=== PATIENT | male | born 1980 | race Caucasian/White ===

== ENCOUNTER → 2016-07-30 | Outpatient (CLI) | payer OTHER | END | disposition home or self-care (01) | LOC: GOCC 07:55 | PROVIDERS: ATTEND Internal Medicine | DX: T81.4XXA Infection following a procedure, initial encounter (principal) ==

== ENCOUNTER 2017-01-17 08:39 | Emergency (ER) | payer OTHER ==
[2017-01-17] MEDS ORDERED: SODIUM CHLORIDE 0.9% (FLUSH) 10 ML SYG IV PRN (09:04)
--- NOTE | 2017-01-17 09:18 | ED.PDOC ---
History of Present Illness - General Chief Complaint: General Time Seen by Provider: 01/17/17 09:03 Source: patient, alf records Exam Limitations: no limitations - History of Present Illness Initial Comments: [place]IV[place] AT [place] AND IS VENT-DEPENDENT DUE TO ADVANCED MUSCULAR DYSTROPHY. [place] REPORTS HE IS USUALLY 99% ON RA. THIS AM WAS 81%. THEY BAGGED HIM AND BROUGHT UP TO 99% AND SUCTIONED. IN ER, PT CURRENTLY 99% ON RA, BEING MANUALLY BAGGED BY R.T. OTHER VS WNL. PT DENIES PEIN OR OTHER SX , THUS STARTING W/U FOR SOB. Severity: moderate Improving Factors: nothing Worsening Factors: nothing Associated Symptoms: shortness of breath Allergies/Adverse Reactions: Allergies NO KNOWN ALLERGY Allergy (Verified 08/14/15 10:22) Home Medications: Ambulatory Orders Acetaminophen [Acetaminophen ER] 650 mg PO Q6H PRN 08/14/15 Arformoterol Tartrate [Brovana] 15 mcg IN BID 08/14/15 Budesonide (Inhalation) [Budesonide] 0.5 mg IN BID 08/14/15 Chlorhexidine Gluconate (Mouth [Chlorhexidine Gluconate] 0.12 % MT Q4H PRN 08/13 Dextran 70/Dextrose [Hyskon] 1 tata XX TID 08/14/15 Ferrous Sulfate 325 mg PO BID 08/14/15 Furosemide [Lasix] 40 mg PO DAILY 08/14/15 Hydrocortisone 25 mg Supp [Anusol-Hc] 25 mg GA BID PRN 08/14/15 Ipratropium/Albuterol [Duoneb] 3 ml NEB Q4H PRN 08/14/15 Levothyroxine Sodium [Synthroid] 25 mcg PO ACBK 08/14/15 Loperamide HCl 2 mg PO DAILY PRN 08/14/15 Multiple Vitamins W/ Minerals [Multivitamin Adults] 1 tab PO DAILY 08/14/15 Potassium Chloride [K-Tab] 20 meq PO BID 08/14/15 Spironolactone [Aldactone] 25 mg PO DAILY 08/14/15 Artificial Tear Solution [Natural Balance Tears 70.01-0.3 %] 1 tata OP TID Carbamide Peroxide Otic [Debrox Otic] 2 drop BOTH_EYES QID 01/17/17 Cetirizine HCl [Zyrtec Allergy] 10 mg PO DAILY PRN 01/17/17 Clotrimazole/Betamethasone Cre [Lotrisone Cream] 1 unit TOP TID PRN 01/17/17 Ibuprofen [Motrin Ib] 200 mg PO Q6HR PRN 01/17/17 Levothyroxine Sodium [Synthroid] 25 mcg PO DAILY 01/17/17 Polyethylene Glycol 3350 [Miralax] 17 gm PO DAILY PRN 01/17/17 Promethazine HCl 25 mg GA Q6HR PRN 01/17/17 SILVER SULFADIAZINE 1 % 25gm [Silvadene Cream 25gm] 1 applic TOP TID PRN guaiFENesin/DEXTROMETH SYRUP [Robitussin Dm] 5 ml PO Q4HR PRN 01/17/17 Review of Systems - Review of Systems Constitutional: Denies: chills, fever EENTM: Denies: ear pain, nose congestion Respiratory: States: short of breath. Denies: cough, stridor, wheezing Cardiology: States: no symptoms reported Gastrointestinal/Abdominal: States: no symptoms reported Genitourinary: States: no symptoms reported Musculoskeletal: States: no symptoms reported Skin: States: no symptoms reported Neurological: States: no symptoms reported Endocrine: States: no symptoms reported Hematologic/Lymphatic: States: no symptoms reported All other Systems: Reviewed and Negative Past Medical History (General) - Patient Medical History Hx Seizures: No Hx Stroke: No Hx Dementia: No Hx Asthma: No Hx of COPD: Yes - on mech vent Hx Cardiac Disorders: No Hx Congestive Heart Failure: Yes Hx Pacemaker: No Hx Hypertension: Yes Hx Thyroid Disease: Yes - hypo Hx Diabetes: No Hx Gastroesophageal Reflux: Yes - constipation Hx Renal Disease: No Hx of HIV: No Hx MRSA: Yes - 2017 Hip Wound MRSA Source:: Wound - Vaccination History Hx Tetanus, Diphtheria Vaccination: No Hx Influenza Vaccination: No Hx Pneumococcal Vaccination: No - Social History Hx Tobacco Use: No Hx Chewing Tobacco Use: No Hx Alcohol Use: No Hx Substance Use: No Hx Substance Use Treatment: No Hx Depression: No Hx Physical Abuse: No Hx Emotional Abuse: No Hx Suspected Abuse: No - Female History Patient : No Family Medical History - Family History Mother Family History: Unknown Physical Exam - Physical Exam General Appearance: Alert, Well Hydrated Eye Exam: bilateral normal Ears, Nose, Throat: hearing grossly normal, normal ENT inspection, normal pharynx Neck: non-tender, supple Respiratory: chest non-tender, lungs clear, normal breath sounds, other - PT REQUESTING TO BE BAGGED RAPIDLY (APPROX 24 RR), WHICH IMPROVED HIS DYSPNEA. Cardiovascular/Chest: normal peripheral pulses, regular rate, rhythm, no edema, no gallop, no JVD, no murmur Peripheral Pulses: radial,right: 2+, radial,left: 2+ Gastrointestinal/Abdominal: normal bowel sounds, non tender, soft Back Exam: no CVA tenderness, no vertebral tenderness Extremity: non-tender, normal inspection Neurologic: alert, normal mood/affect Skin Exam: normal color, diaphoresis Lymphatic: no adenopathy Progress - Progress Progress: 01/17/17 10:45 PT HAS RLL PNE. TRANSFERRING TO [facility] SINCE HE IS CHRONICALLY VENT- DEPENDENT D/T MUSCULAR DYSTROPHY. I SPOKE WITH DR. MAE, [facility], WHO ACCEPTED CARE. THANK YOU, [facility] AND DR. MAE. CXR - RLL PNE SEPSIS PER SIRS CRITERIA (LEUKOCYTOSIS AND TACHYCARDIA) PLUS INFECTIOUS SOURCE ( PNE). EKG -SINUS TACH CBC - WBC 22. HGB 11.8. ELEV PLATELETS. CMP - HYPONATREMIA AND HYPOKALEMIA D-DIMER APPROPRIATELY MILDLY ELEVATED D/T PNE. TROP ELEV AT 0.[address] CHANGES AND DENIES CHEST PAIN. BNP NEG. UA, ABG, FLU, SPUTUM CX, BLOOD CX - PENDING GIVING 1ST DOSE OF EMPIRIC IV ABX FOR HCAP ([facility] PT): ZOSYN AND VANCOMYCIN. PREPARING FOR TRANSFER VIA EMS. PT HEMODYNAMICALLY STABLE FOR TRFR (O2 98% ON RA VIA VENTILATOR). 01/17/17 10:52 01/17/17 10:55 Departure - Departure Clinical Impression: HCAP (healthcare-associated pneumonia), Leukocytosis, Anemia, Thrombocytosis, Hyponatremia, Hypokalemia, Sinus tachycardia by electrocardiogram, Sepsis due to pneumonia, Incomplete right bundle branch block, Muscular dystrophy, Ventilator dependent Disposition: Transfer to Hospital Condition: Fair Departure Forms: ED Discharge - Pt. Copy, Patient Portal Self Enrollment Referrals: JOSE NOGUEIRA [Primary Care Provider] - 1-2 Weeks Home Medications: Ambulatory Orders Acetaminophen [Acetaminophen ER] 650 mg PO Q6H PRN 08/14/15 Arformoterol Tartrate [Brovana] 15 mcg IN BID 08/14/15 Budesonide (Inhalation) [Budesonide] 0.5 mg IN BID 08/14/15 Chlorhexidine Gluconate (Mouth [Chlorhexidine Gluconate] 0.12 % MT Q4H PRN 08/13 Dextran 70/Dextrose [Hyskon] 1 tata XX TID 08/14/15 Ferrous Sulfate 325 mg PO BID 08/14/15 Furosemide [Lasix] 40 mg PO DAILY 08/14/15 Hydrocortisone 25 mg Supp [Anusol-Hc] 25 mg GA BID PRN 08/14/15 Ipratropium/Albuterol [Duoneb] 3 ml NEB Q4H PRN 08/14/15 Levothyroxine Sodium [Synthroid] 25 mcg PO ACBK 08/14/15 Loperamide HCl 2 mg PO DAILY PRN 08/14/15 Multiple Vitamins W/ Minerals [Multivitamin Adults] 1 tab PO DAILY 08/14/15 Potassium Chloride [K-Tab] 20 meq PO BID 08/14/15 Spironolactone [Aldactone] 25 mg PO DAILY 08/14/15 Artificial Tear Solution [Natural Balance Tears 70.01-0.3 %] 1 tata OP TID Carbamide Peroxide Otic [Debrox Otic] 2 drop BOTH_EYES QID 01/17/17 Cetirizine HCl [Zyrtec Allergy] 10 mg PO DAILY PRN 01/17/17 Clotrimazole/Betamethasone Cre [Lotrisone Cream] 1 unit TOP TID PRN 01/17/17 Ibuprofen [Motrin Ib] 200 mg PO Q6HR PRN 01/17/17 Levothyroxine Sodium [Synthroid] 25 mcg PO DAILY 01/17/17 Polyethylene Glycol 3350 [Miralax] 17 gm PO DAILY PRN 01/17/17 Promethazine HCl 25 mg GA Q6HR PRN 01/17/17 SILVER SULFADIAZINE 1 % 25gm [Silvadene Cream 25gm] 1 applic TOP TID PRN guaiFENesin/DEXTROMETH SYRUP [Robitussin Dm] 5 ml PO Q4HR PRN 01/17/17 Transfer to Outside Facility - Transfer Information [facility] Reason for Transfer: specialized care not available
--- NOTE | 2017-01-17 09:33 | RAD ---
EXAM DESCRIPTION: Chest,1 View CLINICAL HISTORY: 36 years Male, dyspnea COMPARISON: August 14, 2015 and December 22, 2015 TECHNIQUE: AP portable chest. FINDINGS: Dense consolidation right lung base with reticulonodular infiltrates throughout the right lung. This is definitely worse than the comparison. The left lung is clear. Tracheostomy is present. Heart size normal. IMPRESSION: Diffuse right side pneumonia Electronically signed by: Abebe Giles MD 01/17/2017 9:31 AM CDT
[2017-01-17] MEDS ORDERED: PIPERACILLIN/TAZOBACTAM 3.375 GM in SODIUM CHLORIDE 0.9% 100ML 100 ML IVPB ONE (10:29)
[2017-01-17] MEDS ORDERED: VANCOMYCIN HCL INJ 1,000 MG in SODIUM CHLORIDE 0.9% 250ML 250 ML IVPB ONE (10:30)
[2017-01-17] MEDS ORDERED: PIPERACILLIN/TAZOBACTAM 3.375 GM VIAL IVPB ONE (11:05)
[2017-01-17] MEDS ORDERED: SODIUM CHLORIDE 0.9% 100ML 100 ML IVPB ONE (11:05)
[2017-01-17] MEDS ORDERED: VANCOMYCIN HCL INJ 1,000 MG VIAL IVPB ONE (11:06)
[2017-01-17] MEDS ORDERED: SODIUM CHLORIDE 0.9% 250ML 250 ML ONE (11:06)
[2017-01-17 11:44] VITALS: O2SAT 95
[2017-01-17 12:51] VITALS: BP 95/60; TEMP 98
== END 2017-01-17 12:30 | disposition short-term general hospital (02) ==
LOC: ER 08:39
DX: A41.9 Sepsis, unspecified organism (principal); J18.9 Pneumonia, unspecified organism; Y95 Nosocomial condition; D64.9 Anemia, unspecified; D47.3 Essential (hemorrhagic) thrombocythemia; E87.1 Hypo-osmolality and hyponatremia; E87.6 Hypokalemia; R00.0 Tachycardia, unspecified; I45.10 Unspecified right bundle-branch block; Z99.11 Dependence on respirator [ventilator] status; G71.0 Muscular dystrophy; E03.9 Hypothyroidism, unspecified; I11.0 Hypertensive heart disease with heart failure; I50.9 Heart failure, unspecified
CPT/HCPCS: 36415; 71010; 80053; 82550; 82553; 83880; 84484; 85025; 85379; 87070; 87804; 93005; 94640; 94770; J2060; J2543; J3370; J7050

== ENCOUNTER 2017-01-21 12:36 | Emergency (ER) | payer OTHER ==
--- NOTE | 2017-01-21 13:10 | ED.PDOC ---
History of Present Illness - General Chief Complaint: Neuro Symptoms/Deficits Stated Complaint: altered mental status Time Seen by Provider: 01/21/17 12:47 Source: RN notes reviewed, Vital Signs reviewed, family, EMS, jail records Exam Limitations: clinical condition - History of Present Illness Initial Comments: Patient comes into ER via EMS after cardiac arrest [facility]. Patient is a chronic vent patient due to muscular dystrophy. He was just discharged from [facility] due to pneumonia. Today he was c/o not feeling well and asked the nurse for a Tylenol. When she got back to the room with the Tylenol he was in cardiac arrest. CPR was started by nursing staff and continued by EMS on arrival. They got him into the ambulance and hooked him up to the monitor and he was back in sinus rhythm in the 50's that gradually came up to the 110's. He has been unresponsive the whole time. Normally he is awake, alert and talkative. Timing/Duration: 1/2 hour Severity: severe Improving Factors: other - CPR Worsening Factors: nothing Allergies/Adverse Reactions: Allergies NO KNOWN ALLERGY Allergy (Verified 08/14/15 10:22) Home Medications: Ambulatory Orders Acetaminophen [Acetaminophen ER] 650 mg PO Q6H PRN 08/14/15 Arformoterol Tartrate [Brovana] 15 mcg IN BID 08/14/15 Budesonide (Inhalation) [Budesonide] 0.5 mg IN BID 08/14/15 Chlorhexidine Gluconate (Mouth [Chlorhexidine Gluconate] 0.12 % MT Q4H PRN 08/13 Dextran 70/Dextrose [Hyskon] 1 tata XX TID 08/14/15 Ferrous Sulfate 325 mg PO BID 08/14/15 Furosemide [Lasix] 40 mg PO DAILY 08/14/15 Hydrocortisone 25 mg Supp [Anusol-Hc] 25 mg NV BID PRN 08/14/15 Ipratropium/Albuterol [Duoneb] 3 ml NEB Q4H PRN 08/14/15 Levothyroxine Sodium [Synthroid] 25 mcg PO ACBK 08/14/15 Loperamide HCl 2 mg PO DAILY PRN 08/14/15 Multiple Vitamins W/ Minerals [Multivitamin Adults] 1 tab PO DAILY 08/14/15 Potassium Chloride [K-Tab] 20 meq PO BID 08/14/15 Spironolactone [Aldactone] 25 mg PO DAILY 08/14/15 Artificial Tear Solution [Natural Balance Tears 70.01-0.3 %] 1 tata OP TID Carbamide Peroxide Otic [Debrox Otic] 2 drop BOTH_EYES QID 01/17/17 Cetirizine HCl [Zyrtec Allergy] 10 mg PO DAILY PRN 01/17/17 Clotrimazole/Betamethasone Cre [Lotrisone Cream] 1 unit TOP TID PRN 01/17/17 Ibuprofen [Motrin Ib] 200 mg PO Q6HR PRN 01/17/17 Levothyroxine Sodium [Synthroid] 25 mcg PO DAILY 01/17/17 Polyethylene Glycol 3350 [Miralax] 17 gm PO DAILY PRN 01/17/17 Promethazine HCl 25 mg NV Q6HR PRN 01/17/17 SILVER SULFADIAZINE 1 % 25gm [Silvadene Cream 25gm] 1 applic TOP TID PRN guaiFENesin/DEXTROMETH SYRUP [Robitussin Dm] 5 ml PO Q4HR PRN 01/17/17 Review of Systems - Review of Systems Unable to Obtain Due To: clinical condition Past Medical History (General) - Patient Medical History Hx Seizures: No Hx Stroke: No Hx Dementia: No Hx Asthma: No Hx of COPD: Yes - on mech vent Hx Cardiac Disorders: No Hx Congestive Heart Failure: Yes Hx Pacemaker: No Hx Hypertension: Yes Hx Thyroid Disease: Yes - hypo Hx Diabetes: No Hx Gastroesophageal Reflux: Yes - constipation Hx Renal Disease: No Hx of HIV: No Hx MRSA: Yes - 2017 Hip Wound MRSA Source:: Wound - Vaccination History Hx Tetanus, Diphtheria Vaccination: No Hx Influenza Vaccination: No Hx Pneumococcal Vaccination: No - Social History Hx Tobacco Use: No Hx Chewing Tobacco Use: No Hx Alcohol Use: No Hx Substance Use: No Hx Substance Use Treatment: No Hx Depression: No Hx Physical Abuse: No Hx Emotional Abuse: No Hx Suspected Abuse: No - Female History Patient : No Family Medical History - Family History Mother Family History: Unknown Living Status: Still Living Progress - Progress Progress: 01/21/17 13:40 Patient is more responsive. Shaking head yes and no to answer questions. C/O sharp chest pain but no pressure. +SOB, would like an Albuterol treatment. 01/21/17 15:16 He has become more responsive the longer he has been here. Now talking. His nurse from [facility] came by. She reports that he became unresponsive and they laid him back in bed and at that point he lost his pulse. They started CPR and called 911. Thinks CPR was performed for ~8minutes prior to a rhythm being noted on the EMS monitor. - Results/Orders Results/Orders: Laboratory Tests 01/21/17 01/21/17 01/21/17 14:13 14:13 14:13 WBC 32.6 H* RBC 4.44 L Hgb 12.0 L Hct 36.4 L MCV 81.9 MCH 27.0 MCHC 33.0 RDW 15.2 H Plt Count 639 H MPV 7.1 L Absolute Neuts (auto) Not Reportable Absolute Lymphs (auto) Not Reportable Absolute Monos (auto) Not Reportable Absolute Eos (auto) Not Reportable Neutrophils % Not Reportable Neutrophils % (Manual) 80.0 Lymphocytes % Not Reportable Lymphocytes % (Manual) 3.0 Monocytes % Not Reportable Monocytes % (Manual) 4.0 Eosinophils % Not Reportable Basophils % Not Reportable Band Neutrophils 13.0 Platelet Estimate Increased Normal RBC Morphology Normal rbc morph D-Dimer, Quantitative 3853 H* Sodium 143 Potassium 3.9 Chloride 117 H* Carbon Dioxide 18 L Anion Gap 11.9 L BUN 18 Creatinine < 0.40 L BUN/Creatinine Ratio 45.0 H Random Glucose 130 H Serum Osmolality 288.6 Calcium 8.7 Total Bilirubin 0.7 AST 24 ALT 18 Alkaline Phosphatase 87 Creatine Kinase 164 CK-MB (CK-2) 14.9 H* CK-MB (CK-2) % Not Reportable Troponin I 0.26 H* Serum Total Protein 7.9 Albumin 3.0 L Globulin 4.9 H Albumin/Globulin Ratio 0.6 L - EKG/XRAY/CT EKG: Sinus, Tachy, RBBB, no ST T wave changes Departure - Departure Clinical Impression: Pneumonia of right lower lobe due to infectious organism, Cardiac arrest due to respiratory disorder, Myotonic dystrophy Altered mental status Qualifiers: Altered mental status type: transient alteration of awareness Qualified Code(s) : R40.4 - Transient alteration of awareness Time of Disposition: 15:26 Disposition: Transfer to Hospital Condition: Serious Departure Forms: ED Discharge - Pt. Copy, Patient Portal Self Enrollment Referrals: JOSE NOGUEIRA [Primary Care Provider] - 1-2 Weeks Home Medications: Ambulatory Orders Acetaminophen [Acetaminophen ER] 650 mg PO Q6H PRN 08/14/15 Arformoterol Tartrate [Brovana] 15 mcg IN BID 08/14/15 Budesonide (Inhalation) [Budesonide] 0.5 mg IN BID 08/14/15 Chlorhexidine Gluconate (Mouth [Chlorhexidine Gluconate] 0.12 % MT Q4H PRN 08/13 Dextran 70/Dextrose [Hyskon] 1 tata XX TID 08/14/15 Ferrous Sulfate 325 mg PO BID 08/14/15 Furosemide [Lasix] 40 mg PO DAILY 08/14/15 Hydrocortisone 25 mg Supp [Anusol-Hc] 25 mg NV BID PRN 08/14/15 Ipratropium/Albuterol [Duoneb] 3 ml NEB Q4H PRN 08/14/15 Levothyroxine Sodium [Synthroid] 25 mcg PO ACBK 08/14/15 Loperamide HCl 2 mg PO DAILY PRN 08/14/15 Multiple Vitamins W/ Minerals [Multivitamin Adults] 1 tab PO DAILY 08/14/15 Potassium Chloride [K-Tab] 20 meq PO BID 08/14/15 Spironolactone [Aldactone] 25 mg PO DAILY 08/14/15 Artificial Tear Solution [Natural Balance Tears 70.01-0.3 %] 1 tata OP TID Carbamide Peroxide Otic [Debrox Otic] 2 drop BOTH_EYES QID 01/17/17 Cetirizine HCl [Zyrtec Allergy] 10 mg PO DAILY PRN 01/17/17 Clotrimazole/Betamethasone Cre [Lotrisone Cream] 1 unit TOP TID PRN 01/17/17 Ibuprofen [Motrin Ib] 200 mg PO Q6HR PRN 01/17/17 Levothyroxine Sodium [Synthroid] 25 mcg PO DAILY 01/17/17 Polyethylene Glycol 3350 [Miralax] 17 gm PO DAILY PRN 01/17/17 Promethazine HCl 25 mg NV Q6HR PRN 01/17/17 SILVER SULFADIAZINE 1 % 25gm [Silvadene Cream 25gm] 1 applic TOP TID PRN guaiFENesin/DEXTROMETH SYRUP [Robitussin Dm] 5 ml PO Q4HR PRN 01/17/17 Transfer to Outside Facility - Transfer Information Accepting Provider:: Neto Torres Accepting Facility: [facility] Reason for Transfer: required specialist not available - [employer]
[2017-01-21] MEDS ORDERED: ALBUTEROL SULFATE 2.5 MG/3 ML VIAL NEB ONE ×2 (13:37→13:42)
--- NOTE | 2017-01-21 13:55 | CT ---
PROCEDURE: Head HISTORY: Altered mental status Indication: Same as above Comparison: None Technique: CT of the head was done without intravenous contrast was done in the orthogonal planes. This exam was performed according to our departmental dose-optimization program, which includes automated exposure control, adjustment of the mA and/or KV according to the patient's size and/or use of iterative reconstruction technique. FINDINGS: There is no intracranial hemorrhage, midline shift mass effect or acute focal infarct. If clinical concern exists regarding an acute ischemic/vascular pathology being responsible for patient's symptomatology, an MRI of the brain is more sensitive than the current study, in ruling out such a possibility. There is good esparza/white matter differentiation. The ventricular system is normal. The mastoid air cells are unremarkable . The paranasal sinuses are unremarkable . There is no visualization of acute fractures involving the calvarium or the skull base. IMPRESSION: There is no acute intracranial abnormality. Electronically signed by: Dickson Rivera MD 01/21/2017 1:54 PM CDT Workstation: [id number]
[2017-01-21] MEDS ORDERED: SODIUM CHLORIDE 0.9% 1000ML 1,000 ML IVS ONE (16:12)
[2017-01-21 16:18] VITALS: BP 93/62; TEMP 98.4; O2SAT 95
[2017-01-21] MEDS ORDERED: SODIUM CHLORIDE 0.9% 1000ML 1,000 ML ONE (17:36)
== END 2017-01-21 16:15 | disposition short-term general hospital (02) ==
LOC: ER 12:36
DX: J18.9 Pneumonia, unspecified organism (principal); I46.8 Cardiac arrest due to other underlying condition; G71.11 Myotonic muscular dystrophy; R40.4 Transient alteration of awareness; Z99.11 Dependence on respirator [ventilator] status; I11.0 Hypertensive heart disease with heart failure; I10 Essential (primary) hypertension; E03.9 Hypothyroidism, unspecified; Z79.899 Other long term (current) drug therapy
CPT/HCPCS: 36415; 70450; 80053; 82550; 82553; 84484; 85025; 85379; 93005; 94002; 94640; J7030; J7611

== ENCOUNTER 2017-08-05 08:36 | Emergency (ER) | payer OTHER ==
[2017-08-05] MEDS ORDERED: IPRATROPIUM/ALBUTEROL 3 ML VIAL NEB ONE ×4 (08:50→09:19)
--- NOTE | 2017-08-05 08:58 | ED.PDOC ---
History of Present Illness - General Chief Complaint: Respiratory Problem Stated Complaint: labored breathing Time Seen by Provider: 08/05/17 08:51 Source: EMS, group home records Exam Limitations: physical impairment, other - ventilator dependent /on tracheostomy - History of Present Illness Initial Comments: Reuben Garnett 37 y/o male with history of muscular dystrophy with chronic respiratory failure on chronic ventilatory support brought by ems after they were called on this patient with reported difficulty breathing this am at the facility.On his arrival he was whispering about hard to breath with the respiratory therapist Sao2 -100 %,HR-115 with BP-142/76 ,Vent -40% Fio2;pip-52, rr-26 Timing/Duration: 1-3 hours Severity: moderate Activities at Onset: none Possible Cause: occasional episodes Improving Factors: nothing Worsening Factors: nothing Respiratory Risk Factors: other Allergies/Adverse Reactions: Allergies NO KNOWN ALLERGY Allergy (Verified 08/14/15 10:22) Home Medications: Ambulatory Orders Acetaminophen [Acetaminophen ER] 650 mg PEG Q6H PRN 08/14/15 Arformoterol Tartrate [Brovana] 15 mcg IN BID 08/14/15 Budesonide (Inhalation) [Budesonide] 0.5 mg IN BID 08/14/15 Chlorhexidine Gluconate (Mouth [Chlorhexidine Gluconate] 0.12 % MT Q4H PRN 08/13 Ferrous Sulfate 325 mg PO BID 08/14/15 Furosemide [Lasix] 40 mg PEG DAILY 08/14/15 Ipratropium/Albuterol [Duoneb] 3 ml NEB Q6H 08/14/15 Levothyroxine Sodium [Synthroid] 25 mcg PEG ACBK 08/14/15 Potassium Chloride [K-Tab] 20 meq PEG BID 08/14/15 Artificial Tear Solution [Natural Balance Tears 70.01-0.3 %] 1 tata OP TID Clotrimazole/Betamethasone Cre [Lotrisone Cream] 1 unit TOP TID PRN 01/17/17 Ibuprofen [Motrin Ib] 600 mg PO Q12H PRN 01/17/17 Polyethylene Glycol 3350 [Miralax] 17 gm PEG DAILY PRN 01/17/17 Aspirin [Aspirin Regimen Low Dose/] 81 mg PEG GURU-OTH-DAY 08/05/17 B-Complex W/ Folic Acid [B Complex] 1 tab PEG DAILY 08/05/17 Folic Acid 1 mg PEG DAILY 08/05/17 Lactobacillus [Acidophilus] 2 tab PEG BID 08/05/17 Levalbuterol HCl [Xopenex] 1.25 mg IN Q6H 08/05/17 Nystatin Powder [Mycostatin] 15 gm TOP BID 08/05/17 levoFLOXacin [Levaquin] 500 mg PEG DAILY 08/05/17 Review of Systems - Review of Systems Respiratory: States: see HPI Musculoskeletal: States: muscle stiffness Unable to Obtain Due To: condition, other - ventilatory support with tracheostomy hard time verbalizing All other Systems: Reviewed and Negative, No Change from Baseline Past Medical History (General) - Patient Medical History Hx Seizures: No Hx Stroke: No Hx Dementia: No Hx Asthma: No Hx of COPD: Yes - on mech vent Hx Cardiac Disorders: No Hx Congestive Heart Failure: Yes Hx Pacemaker: No Hx Hypertension: Yes Hx Thyroid Disease: Yes - hypo Hx Diabetes: No Hx Gastroesophageal Reflux: Yes - constipation Hx Renal Disease: No Hx of HIV: No Hx MRSA: Yes - 2017 Hip Wound MRSA Source:: Wound Surgical History: other - tracheostomy - Vaccination History Hx Tetanus, Diphtheria Vaccination: No Hx Influenza Vaccination: No Hx Pneumococcal Vaccination: No - Social History Hx Tobacco Use: No Hx Chewing Tobacco Use: No Hx Alcohol Use: No Hx Substance Use: No Hx Substance Use Treatment: No Hx Depression: No Hx Physical Abuse: No Hx Emotional Abuse: No Hx Suspected Abuse: No - Activities of Daily Living Correction/Assisted Living (if applicable):: Daron Amin Grooming Ability: Total Assistance Eating (Feeding) Ability: Total Assistance Toileting Ability: Total Assistance - Female History Patient : No Family Medical History - Family History Mother Family History: Unknown Living Status: Still Living Physical Exam - Physical Exam General Appearance: Alert, Comfortable, No apparent distress Eyes, Ears, Nose, Throat Exam: normal ENT inspection Neck: supple, other - patent tracheostomy Respiratory: chest non-tender, no accessory muscle use, decreased breath sounds , rales - bilaterally Cardiovascular/Chest: normal peripheral pulses, regular rate, rhythm, no murmur Peripheral Pulses: radial,right: 2+, radial,left: 2+ Gastrointestinal/Abdominal: soft, no organomegaly, other - g tube patent Extremity: non-tender, no pedal edema, no calf tenderness, other - contracture deformity both lower extremity with muscle atrophy Skin Exam: normal color, warm/dry Lymphatic: no adenopathy Progress - Progress Progress: 08/05/17 09:03 Vital Signs - 8 hr 08/05/17 08:46 Temperature 98.8 F Pulse Rate [ 116 H Right Brachial] Respiratory 16 Rate Blood Pressure 147/98 [Right Arm] O2 Sat by Pulse 100 Oximetry - Results/Orders Results/Orders: ABG ph-7.49/pco2-28.7/po2-103mm Hg 40% Fi02 08/05/17 09:04 URINALYSIS Stat 08/05/17 09:05 SVN/Updraft Therapy .ONCE 08/05/17 09:06 SVN/Updraft Therapy .PRN 08/05/17 09:33 BLOOD CULTURE Stat 08/05/17 09:54 Capnography .ONCE 08/06/17 09:00 [facility] Daily Ventilator Monitor Daily Laboratory Results - last 24 hr 08/05/17 08/05/17 08/05/17 09:07 09:38 09:38 WBC 15.1 H RBC 3.00 L Hgb 8.1 L Hct 24.4 L MCV 81.5 MCH 27.0 MCHC 33.3 RDW 16.1 H Plt Count 614 H MPV 7.6 Absolute Neuts (auto) 12.60 H Absolute Lymphs (auto) 0.90 L Absolute Monos (auto) 1.40 H Absolute Eos (auto) 0.20 Absolute Basos (auto) 0.10 Neutrophils % 83.1 H Lymphocytes % 5.8 L Monocytes % 9.2 H Eosinophils % 1.2 Basophils % 0.7 PT 17.1 H INR 1.480 PTT (SP) 32.4 pCO2 29 L pO2 103 HCO3 21.6 ABG pH 7.490 H ABG O2 Saturation 100.5 H ABG Base Excess -1.0 ABG Deoxyhemoglobin -0.4 L Oxyhemoglobin % 98.5 H Carboxyhemoglobin % 0.2 L Methemoglobin % Sat 1.8 H Calc Total Hemoglobin 7.8 L Sodium 136 Potassium 3.8 Chloride 102 Carbon Dioxide 23 Anion Gap 14.8 BUN 25 H Creatinine < 0.40 L BUN/Creatinine Ratio 62.0 H Random Glucose 136 H Serum Osmolality 278.4 Lactic Acid 1.0 Calcium 8.8 Magnesium 2.2 Total Bilirubin 0.4 Direct Bilirubin 0.1 Indirect Bilirubin 0.3 AST 25 ALT 31 Alkaline Phosphatase 120 Creatine Kinase 69 CK-MB (CK-2) 1.8 CK-MB (CK-2) % Not Reportable Troponin I < 0.02 B-Natriuretic Peptide Serum Total Protein 9.4 H Albumin 3.2 08/05/17 10:03 WBC RBC Hgb Hct MCV MCH MCHC RDW Plt Count MPV Absolute Neuts (auto) Absolute Lymphs (auto) Absolute Monos (auto) Absolute Eos (auto) Absolute Basos (auto) Neutrophils % Lymphocytes % Monocytes % Eosinophils % Basophils % PT INR PTT (SP) pCO2 pO2 HCO3 ABG pH ABG O2 Saturation ABG Base Excess ABG Deoxyhemoglobin Oxyhemoglobin % Carboxyhemoglobin % Methemoglobin % Sat Calc Total Hemoglobin Sodium Potassium Chloride Carbon Dioxide Anion Gap BUN Creatinine BUN/Creatinine Ratio Random Glucose Serum Osmolality Lactic Acid Calcium Magnesium Total Bilirubin Direct Bilirubin Indirect Bilirubin AST ALT Alkaline Phosphatase Creatine Kinase CK-MB (CK-2) CK-MB (CK-2) % Troponin I B-Natriuretic Peptide 135.0 H Serum Total Protein Albumin - EKG/XRAY/CT XRAY: chest - worsening right sided pleural effusion and diffuse interstitial infiltrate;volume loss right hemithorax Departure - Departure Clinical Impression: Dyspnea and respiratory abnormalities, Ventilator dependent, History of muscular dystrophy Pneumonia Qualifiers: Pneumonia type: due to unspecified organism Laterality: right Lung location: lower lobe of lung Qualified Code(s): J18.1 - Lobar pneumonia, unspecified organism Respiratory failure Qualifiers: Chronicity: unspecified Respiratory failure complication: unspecified whether with hypoxia or hypercapnia Qualified Code(s): J96.90 - Respiratory failure, unspecified, unspecified whether with hypoxia or hypercapnia Time of Disposition: 11:28 Disposition: Transfer to Hospital Condition: Fair Departure Forms: Patient Portal Self Enrollment Referrals: JOSE NOGUEIRA [Primary Care Provider] - 1-2 Weeks Home Medications: Ambulatory Orders Acetaminophen [Acetaminophen ER] 650 mg PEG Q6H PRN 08/14/15 Arformoterol Tartrate [Brovana] 15 mcg IN BID 08/14/15 Budesonide (Inhalation) [Budesonide] 0.5 mg IN BID 08/14/15 Chlorhexidine Gluconate (Mouth [Chlorhexidine Gluconate] 0.12 % MT Q4H PRN 08/13 Ferrous Sulfate 325 mg PO BID 08/14/15 Furosemide [Lasix] 40 mg PEG DAILY 08/14/15 Ipratropium/Albuterol [Duoneb] 3 ml NEB Q6H 08/14/15 Levothyroxine Sodium [Synthroid] 25 mcg PEG ACBK 08/14/15 Potassium Chloride [K-Tab] 20 meq PEG BID 08/14/15 Artificial Tear Solution [Natural Balance Tears 70.01-0.3 %] 1 tata OP TID Clotrimazole/Betamethasone Cre [Lotrisone Cream] 1 unit TOP TID PRN 01/17/17 Ibuprofen [Motrin Ib] 600 mg PO Q12H PRN 01/17/17 Polyethylene Glycol 3350 [Miralax] 17 gm PEG DAILY PRN 01/17/17 Aspirin [Aspirin Regimen Low Dose/] 81 mg PEG GURU-OTH-DAY 08/05/17 B-Complex W/ Folic Acid [B Complex] 1 tab PEG DAILY 08/05/17 Folic Acid 1 mg PEG DAILY 08/05/17 Lactobacillus [Acidophilus] 2 tab PEG BID 08/05/17 Levalbuterol HCl [Xopenex] 1.25 mg IN Q6H 08/05/17 Nystatin Powder [Mycostatin] 15 gm TOP BID 08/05/17 levoFLOXacin [Levaquin] 500 mg PEG DAILY 08/05/17 Transfer to Outside Facility - Transfer Information Accepting Provider:: Dr.J. Rodriguez-DANIEL Morillo Accepting Facility: [facility] Reason for Transfer: required specialist not available - Base Remover
[2017-08-05] MEDS ORDERED: SODIUM CHLORIDE 0.9% 500ML 500 ML IVS ONE (09:06)
--- NOTE | 2017-08-05 09:49 | RAD ---
PROCEDURE: XR CHEST 1 VIEW HISTORY: sob COMPARISON: 01/17/2017 TECHNIQUE: Single projection of the chest was done. FINDINGS: Note is again made of a tracheostomy. There is worsening right-sided pleural effusion and worsening diffuse interstitial infiltrates in the right hemithorax. Persistent volume loss in the right hemithorax is again noted. The left lung is free of infiltrates or pleural effusions. There is no pneumothorax . The cardiomediastinal silhouette is stable. IMPRESSION: There is worsening right-sided pleural effusion and worsening diffuse interstitial infiltrates in the right hemithorax. Persistent volume loss in the right hemithorax is again noted. Electronically signed by: Dickson Rivera MD 08/05/2017 9:48 AM CDT Workstation: [id number]
[2017-08-05] MEDS ORDERED: MEROPENEM 1 GM in SODIUM CHL 0.9% 50ML MIN-BAG+ 50 ML IVPB ONE (10:46)
[2017-08-05] MEDS ORDERED: SODIUM CHL 0.9% 50ML MIN-BAG+ 50 ML IVPB ONE (10:50)
[2017-08-05] MEDS ORDERED: MEROPENEM 1 GM VIAL IVPB ONE (10:50)
[2017-08-05 11:38] VITALS: O2SAT 99
[2017-08-05 12:28] VITALS: BP 100/66; TEMP 97.6
== END 2017-08-05 12:28 | disposition short-term general hospital (02) ==
LOC: ER 08:36
DX: J18.1 Lobar pneumonia, unspecified organism (principal); J96.10 Chronic respiratory failure, unspecified whether with hypoxia or hypercapnia; G71.0 Muscular dystrophy; E03.9 Hypothyroidism, unspecified; I11.0 Hypertensive heart disease with heart failure; I50.9 Heart failure, unspecified; J44.9 Chronic obstructive pulmonary disease, unspecified; Z99.11 Dependence on respirator [ventilator] status; Z79.899 Other long term (current) drug therapy
CPT/HCPCS: 36415; 36600; 71045; 80048; 80076; 82550; 82553; 82803; 82805; 83605; 83880; 84484; 85025; 85610; 85730; 87040; 94002; 94640; 94770; J2185; J7040; J7050; J7620

== ENCOUNTER 2017-08-25 14:51 | Emergency (ER) | payer OTHER ==
--- NOTE | 2017-08-25 16:29 | ED.PDOC ---
History of Present Illness - General Chief Complaint: Skin/Abrasion/Tear Stated Complaint: edema Time Seen by Provider: 08/25/17 15:15 Source: patient Exam Limitations: other - PT VENT DEPENDENT WITH LIMITED ABILITY TO COMMUNICATE. Additional Information: PT VENT DEPENDENT FROM [facility]. C/O ABDOMINAL PAIN. DIARRHEA X 2. NO OTHER SX'S. - History of Present Illness Timing/Duration: other - TODAY Severity: moderate Improving Factors: nothing Worsening Factors: nothing Associated Symptoms: denies symptoms Allergies/Adverse Reactions: Allergies NO KNOWN ALLERGY Allergy (Verified 08/14/15 10:22) Home Medications: Ambulatory Orders Acetaminophen [Acetaminophen ER] 650 mg PEG Q6H PRN 08/14/15 Arformoterol Tartrate [Brovana] 15 mcg IN BID 08/14/15 Budesonide (Inhalation) [Budesonide] 0.5 mg IN BID 08/14/15 Chlorhexidine Gluconate (Mouth [Chlorhexidine Gluconate] 0.12 % MT Q4H PRN 08/13 Ferrous Sulfate 325 mg PO BID 08/14/15 Furosemide [Lasix] 40 mg PEG DAILY 08/14/15 Ipratropium/Albuterol [Duoneb] 3 ml NEB Q6H 08/14/15 Levothyroxine Sodium [Synthroid] 25 mcg PEG ACBK 08/14/15 Potassium Chloride [K-Tab] 20 meq PEG BID 08/14/15 Clotrimazole/Betamethasone Cre [Lotrisone Cream] 1 unit TOP TID PRN 01/17/17 Dextran 70-Hypromellose [Natural Balance Tears 70.01-0.3 %] 1 tata OP TID Ibuprofen [Motrin Ib] 600 mg PO Q12H PRN 01/17/17 Polyethylene Glycol 3350 [Miralax] 17 gm PEG DAILY PRN 01/17/17 Aspirin [Aspirin Regimen Low Dose/] 81 mg PEG GURU-OTH-DAY 08/05/17 B-Complex W/ Folic Acid [B Complex] 1 tab PEG DAILY 08/05/17 Folic Acid 1 mg PEG DAILY 08/05/17 Lactobacillus [Acidophilus] 2 tab PEG BID 08/05/17 Levalbuterol HCl [Xopenex] 1.25 mg IN Q6H 08/05/17 Nystatin Powder [Mycostatin] 15 gm TOP BID 08/05/17 levoFLOXacin [Levaquin] 500 mg PEG DAILY 08/05/17 Review of Systems - Review of Systems Constitutional: Denies: chills, fever EENTM: States: no symptoms reported Respiratory: Denies: cough Cardiology: Denies: chest pain, palpitations Gastrointestinal/Abdominal: States: abdominal pain, diarrhea. Denies: nausea, vomiting Genitourinary: States: no symptoms reported Musculoskeletal: States: no symptoms reported Skin: States: no symptoms reported Neurological: States: other - CHRONIC QUADRAPLEGIA SECONDARY TO MS Endocrine: States: no symptoms reported Hematologic/Lymphatic: States: no symptoms reported Past Medical History (General) - Patient Medical History Hx Seizures: No Hx Stroke: No Hx Dementia: No Hx Asthma: No Hx of COPD: Yes - on mech vent Hx Cardiac Disorders: No Hx Congestive Heart Failure: Yes Hx Pacemaker: No Hx Hypertension: Yes Hx Thyroid Disease: Yes - hypo Hx Diabetes: No Hx Gastroesophageal Reflux: Yes - constipation Hx Renal Disease: No Hx of HIV: No Hx MRSA: Yes - 2017 Hip Wound MRSA Source:: Wound - Vaccination History Hx Tetanus, Diphtheria Vaccination: No Hx Influenza Vaccination: No Hx Pneumococcal Vaccination: No - Social History Hx Tobacco Use: No Hx Chewing Tobacco Use: No Hx Alcohol Use: No Hx Substance Use: No Hx Substance Use Treatment: No Hx Depression: No Hx Physical Abuse: No Hx Emotional Abuse: No Hx Suspected Abuse: No - Female History Patient : No Family Medical History - Family History Mother Family History: Unknown Living Status: Still Living Physical Exam - Physical Exam General Appearance: Other - CONTRACTED, Eye Exam: bilateral normal Ears, Nose, Throat: hearing grossly normal, normal ENT inspection Neck: supple, other - PERMENANT TRACH PRESENT Respiratory: other - COARSE BS LUANA. RESP WITH VENT Cardiovascular/Chest: normal peripheral pulses, regular rate, rhythm Gastrointestinal/Abdominal: non tender, soft, no organomegaly, other - MILDLY TYMPANIC, FEEDING TUBE LUQ Back Exam: other - NO OBVIOUS BREAKDOWN Extremity: other - CONTRACTURES AND WASTING OF BOTH UPPER AND LOWER EXT. Neurologic: alert, other - CHRONIC QUADRAPLEGIA Progress - Progress Progress: 08/25/17 18:09 VSS. HGB HAS DROPPED SOME FROM PREVIOUS. ABD CURRENTLY NON SURGICAL WITH SOME MILD TTP. WILL GIVE PPI WHICH PT IS NOT CURRENTLY ON AND GET XRAYS. 08/25/17 19:29 PT FEELS ABOUT THE SAME, DISCUSSED PLAN WITH HIM AND HE AGREES. - EKG/XRAY/CT XRAY: chest - NON SPECIFIC BOWEL GAS, NO OBSTRUCTION, RLL INFILTRATE. CXR, RLL INFILTRATE, IMPROVED OVER PREVIOUS BUT MAY BE NEW. INFILTRATE. Departure - Departure Clinical Impression: Aspiration pneumonia Qualifiers: Aspiration pneumonia type: due to gastric secretions Laterality: right Lung location: lower lobe of lung Qualified Code(s): J69.0 - Pneumonitis due to inhalation of food and vomit Gastritis Qualifiers: Gastritis type: unspecified gastritis Chronicity: acute Gastritis bleeding: presence of bleeding unspecified Qualified Code(s): K29.00 - Acute gastritis without bleeding ICD-10 Supporting Text: DDX, GERD, PUD, Time of Disposition: 19:35 Disposition: Discharge to SNF Condition: Fair Departure Forms: ED Discharge - Pt. Copy, Patient Portal Self Enrollment Instructions: DI for Abrasion, Aspiration Pneumonia Referrals: JOSE NOGUEIRA [Primary Care Provider] - 1-2 Weeks Home Medications: Ambulatory Orders Acetaminophen [Acetaminophen ER] 650 mg PEG Q6H PRN 08/14/15 Arformoterol Tartrate [Brovana] 15 mcg IN BID 08/14/15 Budesonide (Inhalation) [Budesonide] 0.5 mg IN BID 08/14/15 Chlorhexidine Gluconate (Mouth [Chlorhexidine Gluconate] 0.12 % MT Q4H PRN 08/13 Ferrous Sulfate 325 mg PO BID 08/14/15 Furosemide [Lasix] 40 mg PEG DAILY 08/14/15 Ipratropium/Albuterol [Duoneb] 3 ml NEB Q6H 08/14/15 Levothyroxine Sodium [Synthroid] 25 mcg PEG ACBK 08/14/15 Potassium Chloride [K-Tab] 20 meq PEG BID 08/14/15 Clotrimazole/Betamethasone Cre [Lotrisone Cream] 1 unit TOP TID PRN 01/17/17 Dextran 70-Hypromellose [Natural Balance Tears 70.01-0.3 %] 1 tata OP TID Ibuprofen [Motrin Ib] 600 mg PO Q12H PRN 01/17/17 Polyethylene Glycol 3350 [Miralax] 17 gm PEG DAILY PRN 01/17/17 Aspirin [Aspirin Regimen Low Dose/] 81 mg PEG GURU-OTH-DAY 08/05/17 B-Complex W/ Folic Acid [B Complex] 1 tab PEG DAILY 08/05/17 Folic Acid 1 mg PEG DAILY 08/05/17 Lactobacillus [Acidophilus] 2 tab PEG BID 08/05/17 Levalbuterol HCl [Xopenex] 1.25 mg IN Q6H 08/05/17 Nystatin Powder [Mycostatin] 15 gm TOP BID 08/05/17 levoFLOXacin [Levaquin] 500 mg PEG DAILY 08/05/17 Additional Instructions: CONTINUE ROCEPHIN AND CLINDAMYCIN. CALL DR NOGUEIRA FOR ORDERS AND REPEAT HGB IN AM.
[2017-08-25] MEDS ORDERED: PANTOPRAZOLE SODIUM IV 40 MG VIAL IV ONE (18:10)
--- NOTE | 2017-08-25 19:14 | RAD ---
EXAM DESCRIPTION: Abdomen 1 View CLINICAL HISTORY: 37 years, Male, ABDOMINAL PAIN, ANEMIA COMPARISON: October 10, 2014 FINDINGS: Scattered gas-distended loops of bowel in nonspecific but nonobstructive pattern. Calcifications project over the pelvis, previous noted to be within the bladder. No acute osseous abnormality. Severe spinal scoliosis. Right basilar consolidation suspicious for pneumonia. IMPRESSION: Scattered gas-distended loops of bowel in nonspecific but nonobstructive pattern. Bladder calcifications. Right basilar consolidation suspicious for pneumonia. Electronically signed by: Home Núñez MD 08/25/2017 7:13 PM CDT
--- NOTE | 2017-08-25 19:15 | RAD ---
EXAM DESCRIPTION: Chest,1 View CLINICAL HISTORY:37 years Male, ABDOMINAL PAIN, ANEMIA Comparison: August 05, 2017 FINDINGS/impression: Tracheostomy tube seen with tip terminating territorial colon. Patient rotated limiting evaluation. Probable right pleural effusion with right greater than left interstitial and airspace opacities concerning for pulmonary edema and/or pneumonia, worsened from prior. Cardiac silhouette is unchanged Electronically signed by: Home Núñez MD 08/25/2017 7:14 PM CDT
[2017-08-25] MEDS ORDERED: CLINDAMYCIN IV 900MG 900 MG in PREMIX BAG 1 BAG IVPB ONE (19:41)
[2017-08-25] MEDS ORDERED: cefTRIAXone SODIUM 1 GM in SODIUM CHL 0.9% 50ML MIN-BAG+ 50 ML IVPB ONE (19:41)
[2017-08-25] MEDS ORDERED: SODIUM CHL 0.9% 50ML MIN-BAG+ 50 ML IVPB ONE (19:43)
[2017-08-25] MEDS ORDERED: cefTRIAXone SODIUM 1 GM VIAL ONE (19:43)
[2017-08-25] MEDS ORDERED: CLINDAMYCIN IV 900MG 50 ML IVPB ONE (19:49)
[2017-08-25] MEDS ORDERED: WATER FOR INJ 10 ML VIAL INJ ONE (20:38)
[2017-08-25 21:26] VITALS: BP 93/59; TEMP 98.8; O2SAT 98
== END 2017-08-25 21:26 ==
LOC: ER 14:51
DX: J69.0 Pneumonitis due to inhalation of food and vomit (principal); K29.00 Acute gastritis without bleeding; J44.9 Chronic obstructive pulmonary disease, unspecified; I11.0 Hypertensive heart disease with heart failure; I50.9 Heart failure, unspecified; E03.9 Hypothyroidism, unspecified; K21.9 Gastro-esophageal reflux disease without esophagitis; Z79.82 Long term (current) use of aspirin; Z99.11 Dependence on respirator [ventilator] status
CPT/HCPCS: 71045; 74018; 80053; 81001; 82150; 83690; 85025; 94002; A4216; J0696; J3490; J7050

== ENCOUNTER 2017-09-01 10:47 | Emergency (ER) | payer OTHER ==
--- NOTE | 2017-09-01 11:56 | RAD ---
EXAM DESCRIPTION: Chest,1 View CLINICAL HISTORY: Shortness of breath COMPARISON: Chest radiograph dated August 2017 IMPRESSION: Single upright portable frontal view of the chest. Patient is rotated to the right. Tracheostomy tube with distal tip projecting between the clavicles at midline. Cardiac silhouette shows cardiomegaly with prominent interstitial markings bilaterally, compatible with interstitial edema from congestive heart failure. Interval increased opacities in the right lower lung zones. This may represent pulmonary edema. Underlying infiltrate cannot be excluded. Layering small right-sided pleural effusion. No pneumothorax. Electronically signed by: Giovanny Hall MD 09/01/2017 11:54 AM CDT
--- NOTE | 2017-09-01 12:40 | US ---
EXAM DESCRIPTION: Venous,Lower Extremity LT CLINICAL HISTORY: 37 years Male, SWELLING COMPARISON: None. FINDINGS: The left common femoral, femoral, popliteal, peroneal and posterior tibial veins demonstrate normal compressibility and augmentation. No evidence of intraluminal echogenicity to suggest thrombus. IMPRESSION: No evidence of deep vein thrombosis within the left lower extremity. Electronically signed by: Allison Montoya MD 09/01/2017 12:39 PM CDT
--- NOTE | 2017-09-01 12:41 | US ---
EXAM DESCRIPTION: Venous,Upper Extremity LT CLINICAL HISTORY: 37 years Male, SWELLING COMPARISON: None. FINDINGS: The left internal jugular, subclavian, axillary, basilic, radial and ulnar veins demonstrate normal compressibility and augmentation with no evidence of thrombus. Internal echogenicity is identified within the brachial vein with no color flow or augmentation, consistent with thrombus. IMPRESSION: Left brachial vein thrombosis. Electronically signed by: Allison Montoya MD 09/01/2017 12:40 PM CDT
[2017-09-01] MEDS ORDERED: ENOXAPARIN SODIUM 40 MG/0.4 ML SYG SUBCU ONE (12:57)
[2017-09-01] MEDS ORDERED: SODIUM CHLORIDE 0.9% 250ML 250 ML ONE (14:10)
--- NOTE | 2017-09-01 14:52 | CT ---
EXAM DESCRIPTION: CT ABDOMEN AND PELVIS WITH CONTRAST CLINICAL HISTORY: ABDOMINAL PAIN COMPARISON: None Available. TECHNIQUE: CT of the abdomen and pelvis are performed during IV bolus administration of 100 mL of Isovue 300. Oral contrast media is administered as well. This exam was performed according to our departmental dose-optimization program, which includes automated exposure control, adjustment of the mA and/or kV according to patient size and/or use of iterative reconstruction technique. FINDINGS: The lung bases are abnormal with a small layering pleural effusion on the left and mild stranding at the posterior lung base with significant right hemithorax volume loss and extensive inflammatory change at the right lung base suggesting a pneumonitis or chronic infiltrative or consolidating process. Acute pneumonia cannot be excluded. A small pericardial effusion and tiny amount of basilar pleural fluid on the right is also noted. The liver is markedly abnormal with an almost reticulated incompletely enhancing infiltrative appearance to the right lobe diffusely and to a lesser extent the left lobe. The portal vein is opacified and patent but the hepatic veins demonstrate no significant contrast enhancement and suggests the possibility of hepatic venous thrombosis. This could represent a timing issue related to the timing of the contrast but correlation with hepatic sonography with attention to the hepatic veins recommended. A neoplastic or inflammatory infiltrative process within the liver with be a consideration as well but I suspect this is related to either a circulatory disorder order or timing of the contrast enhancement. A small normal spleen is present. The pancreas is normal in appearance and no adrenal masses are seen. A tiny amount of ascites surrounds the spleen in the left upper quadrant without significant ascites noted otherwise. The kidneys normally enhance without obstruction or mass or cyst and the aorta and retroperitoneum are unremarkable. Gastrostomy tube is in place with a decompressed stomach. Small normal caliber bowel loops in the left midabdomen are present with air and fluid-filled colonic bowel loops as well as distal small bowel suggesting an ileus. Bowel wall thickening or acute inflammatory changes to strongly suggest a colitis or enteritis is not apparent. No free abdominal air is noted. Within the pelvis a large distended bladder with layering small stones in the dependent bladder is present with a fluid distended distal sigmoid and rectum suggesting possibly an element of diarrhea. Severe levoscoliosis of the spine and distortion of the abdominal and pelvic cavity is noted. IMPRESSION: 1. Extremely heterogeneous almost reticular enhancement pattern and lack of enhancement within the liver particularly the right lobe. Hepatic venous system is not opacified and the possibility of hepatic venous thrombosis should be considered. This could also simply represent a timing issue with the bolus contrast enhancement. 2. Marked inflammatory changes right lung base with tiny pleural effusion and small layering pleural effusion left lung base. 3. Normal-appearing spleen with minimal is left upper quadrant ascites. 4. Gastrostomy tube in place with small caliber normal proximal small bowel and fluid distended mid and distal small bowel and colon most consistent with an ileus or less likely an enteritis or colitis. Bowel wall thickening is not apparent 5. Distended bladder with layering small stones is noted in the posterior bladder without evidence of renal obstruction. 6. Severe levoscoliosis of the lumbar spine. Electronically signed by: Brain Whittington MD 09/01/2017 2:51 PM CDT
--- NOTE | 2017-09-01 16:57 | ED.PDOC ---
History of Present Illness - General Chief Complaint: Abdominal Pain Stated Complaint: abdominal pain,weight gain Time Seen by Provider: 09/01/17 11:25 Information Source: patient, RN notes reviewed - History of Present Illness Initial Comments: THIS PATIENT COMES FROM [facility]. HE HAS MUSCULAR DYSTROPHY AND IS ON A VENTILATOR. THE PRIMARY COMPLAINT IS THAT THE PATIENT HAS SWELLING OF THE LEFT UPPER ARM AND LEFT LOWER LEG. HE ALSO C/O ABDOMINAL DISTENTION. HE WAS SEEN HERE SEVERAL DAYS AGO FOR ABDOMINAL PAIN. NO HISTORY OF INJURY REPORTED BY THE [facility], AT THE BEDSIDE. Abdominal Pain Onset Location: epigastric, periumbilical Pain Radiation: no radiation Quality: mild Timing/Duration: days - 2-3 Improving Factors: nothing Worsening Factors: nothing - SWELLING OF THE LEFT ARM AND LEFT LEG. Review of Systems - Review of Systems Constitutional: States: malaise, weakness EENTM: States: no symptoms reported Respiratory: States: other - THE PATIENT IS ON A VENTILATOR. RESENTLY TREATED FOR A PNEUMONIA Cardiology: States: no symptoms reported Gastrointestinal/Abdominal: States: abdominal pain Musculoskeletal: States: joint pain, joint swelling, muscle pain Skin: States: no symptoms reported Neurological: States: no symptoms reported Endocrine: States: no symptoms reported Hematologic/Lymphatic: States: no symptoms reported Past Medical History (General) - Patient Medical History Hx Seizures: No Hx Stroke: No Hx Dementia: No Hx Asthma: No Hx of COPD: Yes - on mech vent Hx Cardiac Disorders: No Hx Congestive Heart Failure: Yes Hx Pacemaker: No Hx Hypertension: Yes Hx Thyroid Disease: Yes - hypo Hx Diabetes: No Hx Gastroesophageal Reflux: Yes - constipation Hx Renal Disease: No Hx of HIV: No Hx MRSA: Yes - 2017 Hip Wound MRSA Source:: Wound - Vaccination History Hx Tetanus, Diphtheria Vaccination: No Hx Influenza Vaccination: No Hx Pneumococcal Vaccination: No - Social History Hx Tobacco Use: No Hx Chewing Tobacco Use: No Hx Alcohol Use: No Hx Substance Use: No Hx Substance Use Treatment: No Hx Depression: No Hx Physical Abuse: No Hx Emotional Abuse: No Hx Suspected Abuse: No - Activities of Daily Living Retirement/Assisted Living (if applicable):: [facility] - Female History Patient : No Family Medical History - Family History Mother Family History: Unknown Living Status: Still Living Physical Exam - Physical Exam General Appearance: Alert, Other - NTUBATED, POSITION Eyes, Ears, Nose, Throat Exam: PERRL/EOMI, normal ENT inspection, TMs normal Neck: non-tender, full range of motion, supple, normal inspection Respiratory: chest non-tender, lungs clear, normal breath sounds, no respiratory distress, no accessory muscle use Cardiovascular/Chest: normal peripheral pulses, regular rate, rhythm, other - EDEMA OF THE LEFT UPPER EXTREMITY AND LEFT LOWER LEG Peripheral Pulses: 2+ Gastrointestinal/Abdominal: normal bowel sounds, soft, no organomegaly, no pulsatile mass, distended, other - NO REBAOUND AND NO GUARDING NOTED. Rectal Exam: deferred Back Exam: normal inspection Extremity: normal range of motion, pedal edema, swelling Neurologic: hand folder II-XII nml as tested, alert, normal mood/affect Skin Exam: normal color Progress - Progress Progress: 09/01/17 17:01 HIS WBC'S ARE 8.4 WITH NORMAL DIFF. THE HB IS 7.9, THREE DAYS AGO IT WAS 8.1; BUT TWO YEARS AGO IT WAS 15.6 VENOUS DOPPLER STUDIES: LEFT UPPER EXTREMITY WITH A BRACHIAL THROMBOSIS. LEFT LOWER LEG, NEGATIVE FOR DVT. CT ABDOMEN: DISTENDED COLON, QUESTIONABLE COLITIS AND ILEUS. STONES IN THE BLADDER. THE LIVER IMAGE SEEMS ABDNORMAL-DECREASE UPTAKE OF CONTRAST. PLAN: GIVEN THAT THE HB WAS 7.9 AND THE PATIENT IS GOING TO BE ON LEVONOX AN COUMADIN FOR DVT OF THE LEFT ARM I ELECTED TO TRANSFUSE THE PATIENT. 09/01/17 19:02 THE PATIENT HAS RECIEVED THE TWO UNITS OF PRBC. PLAN TO DC WITH LOVENOX AND COUMADIN Departure - Departure Clinical Impression: Deep vein thrombosis (DVT) of brachial vein of left upper extremity Qualifiers: Chronicity: unspecified Qualified Code(s): I82.622 - Acute embolism and thrombosis of deep veins of left upper extremity Abdominal pain Qualifiers: Abdominal location: generalized Qualified Code(s): R10.84 - Generalized abdominal pain Anemia Qualifiers: Anemia type: iron deficiency Iron deficiency anemia type: unspecified iron deficiency Qualified Code(s): D50.9 - Iron deficiency anemia, unspecified Time of Disposition: 19:03 Disposition: Discharge to Home or Self Care Departure Forms: ED Discharge - Pt. Copy, Patient Portal Self Enrollment Instructions: DI for Abdominal Pain-Adult Referrals: JOSE NOGUEIRA [Primary Care Provider] - 1-2 Weeks Prescriptions: Enoxaparin Sodium [Lovenox] 40 mg SC BID 5 Days syg Warfarin Sodium [Coumadin] 3 mg PO DAILY 30 Days tab Home Medications: Ambulatory Orders Acetaminophen [Acetaminophen ER] 650 mg PEG Q6H PRN 08/14/15 Arformoterol Tartrate [Brovana] 15 mcg IN BID 08/14/15 Budesonide (Inhalation) [Budesonide] 0.5 mg IN BID 08/14/15 Chlorhexidine Gluconate (Mouth [Chlorhexidine Gluconate] 0.12 % MT Q4H PRN 08/13 Ferrous Sulfate 325 mg PO BID 08/14/15 Furosemide [Lasix] 40 mg PEG BID 08/14/15 Ipratropium/Albuterol [Duoneb] 3 ml NEB Q6H 08/14/15 Levothyroxine Sodium [Synthroid] 25 mcg PEG ACBK 08/14/15 Potassium Chloride [K-Tab] 20 meq PEG BID 08/14/15 Clotrimazole/Betamethasone Cre [Lotrisone Cream] 1 unit TOP TID PRN 01/17/17 Dextran 70-Hypromellose [Natural Balance Tears 70.01-0.3 %] 1 tata OP TID Polyethylene Glycol 3350 [Miralax] 17 gm PEG DAILY PRN 01/17/17 B-Complex W/ Folic Acid [B Complex] 1 tab PEG DAILY 08/05/17 Folic Acid 1 mg PEG DAILY 08/05/17 Lactobacillus [Acidophilus] 2 tab PEG TID 08/05/17 Levalbuterol HCl [Xopenex] 1.25 mg IN Q6H 08/05/17 Nystatin Powder [Mycostatin] 15 gm TOP BID 08/05/17 Buspirone HCl 10 mg PO TID 09/01/17 Enoxaparin Sodium [Lovenox] 40 mg SC BID 5 Days syg 09/01/17 Metoclopramide HCl 5 mg PO QID 09/01/17 Ranitidine HCl 150 mg PO BID 09/01/17 Scopolamine Patch 1.5MG [Transderm-Scop Patch] 1 ea TD Q72H 09/01/17 Simethicone 160 mg PO BID 09/01/17 Warfarin Sodium [Coumadin] 3 mg PO DAILY 30 Days tab 09/01/17 guaiFENesin 100 MG/5 ML [Robitussin] 20 ml PO BID 09/01/17
[2017-09-01 17:24] VITALS: O2SAT 100
[2017-09-01 19:55] VITALS: TEMP 97.6
[2017-09-01 20:23] VITALS: BP 112/76
== END 2017-09-01 19:55 | disposition home or self-care (01) ==
LOC: ER 10:47
DX: I82.622 Acute embolism and thrombosis of deep veins of left upper extremity (principal); R10.84 Generalized abdominal pain; D50.9 Iron deficiency anemia, unspecified; J44.9 Chronic obstructive pulmonary disease, unspecified; I11.0 Hypertensive heart disease with heart failure; I50.9 Heart failure, unspecified; E03.9 Hypothyroidism, unspecified; N21.0 Calculus in bladder; Z99.11 Dependence on respirator [ventilator] status
CPT/HCPCS: 36415; 71045; 74177; 80053; 81001; 85025; 85610; 85730; 86850; 86900; 86901; 86922; 93971; 94002; 94760; J1650; J7050; P9016

== ENCOUNTER 2017-10-03 13:37 | Emergency (ER) | payer OTHER ==
--- NOTE | 2017-10-03 14:07 | ED.PDOC ---
History of Present Illness - General Chief Complaint: Unresponsive Stated Complaint: unresponsive Time Seen by Provider: 10/03/17 14:01 Source: patient, RN notes reviewed Exam Limitations: clinical condition - History of Present Illness Initial Comments: HAD AN EPISODE OF CONFUSION AND AMS. MEDICS WERE CALLED AND BY THE TIME THEY GOT THERE THE PATIENT WAS BETTER. EVIDENTLY THEY HAD ALREADY SUCTIONED THE ENDOTRACHEAL TUBE. Timing/Duration: 1 hour Severity: moderate Improving Factors: other - IMPROVED AFTER BEING SUCTIONED. Worsening Factors: nothing Associated Symptoms: other - LIGHTHEADED Allergies/Adverse Reactions: Allergies NO KNOWN ALLERGY Allergy (Verified 10/03/17 14:07) Home Medications: Ambulatory Orders Acetaminophen [Acetaminophen ER] 650 mg PEG Q6H PRN 08/14/15 Arformoterol Tartrate [Brovana] 15 mcg IN BID 08/14/15 Budesonide (Inhalation) [Budesonide] 0.5 mg IN BID 08/14/15 Chlorhexidine Gluconate (Mouth [Chlorhexidine Gluconate] 0.12 % MT Q4H PRN 08/13 Ferrous Sulfate 325 mg PO BID 08/14/15 Furosemide [Lasix] 40 mg PEG BID 08/14/15 Ipratropium/Albuterol [Duoneb] 3 ml NEB Q6H 08/14/15 Levothyroxine Sodium [Synthroid] 25 mcg PEG ACBK 08/14/15 Potassium Chloride [K-Tab] 20 meq PEG BID 08/14/15 Clotrimazole/Betamethasone Cre [Lotrisone Cream] 1 unit TOP TID PRN 01/17/17 Dextran 70-Hypromellose [Natural Balance Tears 70.01-0.3 %] 1 tata OP TID Polyethylene Glycol 3350 [Miralax] 17 gm PEG DAILY PRN 01/17/17 B-Complex W/ Folic Acid [B Complex] 1 tab PEG DAILY 08/05/17 Folic Acid 1 mg PEG DAILY 08/05/17 Lactobacillus [Acidophilus] 2 tab PEG TID 08/05/17 Levalbuterol HCl [Xopenex] 1.25 mg IN Q6H 08/05/17 Nystatin Powder [Mycostatin] 15 gm TOP BID 08/05/17 Buspirone HCl 10 mg PO TID 09/01/17 Enoxaparin Sodium [Lovenox] 40 mg SC BID 5 Days syg 09/01/17 Metoclopramide HCl 5 mg PO QID 09/01/17 Ranitidine HCl 150 mg PO BID 09/01/17 Scopolamine Patch 1.5MG [Transderm-Scop Patch] 1 ea TD Q72H 09/01/17 Simethicone 160 mg PO BID 09/01/17 Warfarin Sodium [Coumadin] 3 mg PO DAILY 30 Days tab 09/01/17 guaiFENesin 100 MG/5 ML [Robitussin] 20 ml PO BID 09/01/17 levoFLOXacin [Levaquin] 500 mg PO DAILY #10 tab 10/03/17 Review of Systems - Review of Systems Constitutional: States: no symptoms reported EENTM: States: no symptoms reported Respiratory: States: no symptoms reported Cardiology: States: no symptoms reported Gastrointestinal/Abdominal: States: no symptoms reported Genitourinary: States: no symptoms reported, other - HE HAS BEEN INCONTINENT Musculoskeletal: States: no symptoms reported Skin: States: no symptoms reported Neurological: States: no symptoms reported Endocrine: States: no symptoms reported Hematologic/Lymphatic: States: no symptoms reported Past Medical History (General) - Patient Medical History Hx Seizures: No Hx Stroke: No Hx Dementia: No Hx Asthma: No Hx of COPD: Yes - on mech vent Hx Cardiac Disorders: No Hx Congestive Heart Failure: Yes Hx Pacemaker: No Hx Hypertension: Yes Hx Thyroid Disease: Yes - hypo Hx Diabetes: No Hx Gastroesophageal Reflux: Yes - constipation Hx Renal Disease: No Hx of HIV: No Hx MRSA: Yes - 2017 Hip Wound MRSA Source:: Wound - Vaccination History Hx Tetanus, Diphtheria Vaccination: No Hx Influenza Vaccination: No Hx Pneumococcal Vaccination: No - Social History Hx Tobacco Use: No Hx Chewing Tobacco Use: No Hx Alcohol Use: No Hx Substance Use: No Hx Substance Use Treatment: No Hx Depression: No Hx Physical Abuse: No Hx Emotional Abuse: No Hx Suspected Abuse: No - Female History Patient : No Family Medical History - Family History Mother Family History: Unknown Living Status: Still Living Physical Exam - Physical Exam General Appearance: Alert, Other - 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 HE IS ABLE TO COMMUNICATE EVEN BEING INTUBATED. Eye Exam: bilateral normal Ears, Nose, Throat: hearing grossly normal Neck: non-tender Respiratory: chest non-tender, rhonchi Cardiovascular/Chest: normal peripheral pulses, regular rate, rhythm, no edema Rectal Exam: deferred Extremity: other - CONTRACTED Neurologic: alert Skin Exam: normal color Progress - Results/Orders Results/Orders: 1630: Lab is reported. The ua has 10-20 wbc's. THE CXR HAS PULMONARY EDEMA V/S PNEUMONIA ON THE RIGHT LOWER BASE. THIS IMAGE HAS BEEN PRESENT ON PREVIOUS CXR. THE CBC WITH A WBC OF 14.7, AND 75% NEUTROPHILS. THE TRANAMINASES ARE SLIGHTLY ELEVATED. GIVEN THE ELEVATED WBC AND THE UTI AND THE IMAGE OF EDEMA V/ S PNEUMONIA I WILL TREAT AN OUTPATIENT WITH LEVAQUIN. Departure - Departure Clinical Impression: Vertigo UTI (urinary tract infection) Qualifiers: Urinary tract infection type: acute cystitis Hematuria presence: without hematuria Qualified Code(s): N30.00 - Acute cystitis without hematuria Time of Disposition: 16:35 Disposition: Discharge to SNF Condition: Fair Departure Forms: ED Discharge - Pt. Copy, Patient Portal Self Enrollment Instructions: Urinary Tract Infections in Adults Diet: resume usual diet Referrals: JOSE NOGUEIRA [Primary Care Provider] - 1-2 Weeks Prescriptions: levoFLOXacin [Levaquin] 500 mg PO DAILY #10 tab Home Medications: Ambulatory Orders Acetaminophen [Acetaminophen ER] 650 mg PEG Q6H PRN 08/14/15 Arformoterol Tartrate [Brovana] 15 mcg IN BID 08/14/15 Budesonide (Inhalation) [Budesonide] 0.5 mg IN BID 08/14/15 Chlorhexidine Gluconate (Mouth [Chlorhexidine Gluconate] 0.12 % MT Q4H PRN 08/13 Ferrous Sulfate 325 mg PO BID 08/14/15 Furosemide [Lasix] 40 mg PEG BID 08/14/15 Ipratropium/Albuterol [Duoneb] 3 ml NEB Q6H 08/14/15 Levothyroxine Sodium [Synthroid] 25 mcg PEG ACBK 08/14/15 Potassium Chloride [K-Tab] 20 meq PEG BID 08/14/15 Clotrimazole/Betamethasone Cre [Lotrisone Cream] 1 unit TOP TID PRN 01/17/17 Dextran 70-Hypromellose [Natural Balance Tears 70.01-0.3 %] 1 tata OP TID Polyethylene Glycol 3350 [Miralax] 17 gm PEG DAILY PRN 01/17/17 B-Complex W/ Folic Acid [B Complex] 1 tab PEG DAILY 08/05/17 Folic Acid 1 mg PEG DAILY 08/05/17 Lactobacillus [Acidophilus] 2 tab PEG TID 08/05/17 Levalbuterol HCl [Xopenex] 1.25 mg IN Q6H 08/05/17 Nystatin Powder [Mycostatin] 15 gm TOP BID 08/05/17 Buspirone HCl 10 mg PO TID 09/01/17 Enoxaparin Sodium [Lovenox] 40 mg SC BID 5 Days syg 09/01/17 Metoclopramide HCl 5 mg PO QID 09/01/17 Ranitidine HCl 150 mg PO BID 09/01/17 Scopolamine Patch 1.5MG [Transderm-Scop Patch] 1 ea TD Q72H 09/01/17 Simethicone 160 mg PO BID 09/01/17 Warfarin Sodium [Coumadin] 3 mg PO DAILY 30 Days tab 09/01/17 guaiFENesin 100 MG/5 ML [Robitussin] 20 ml PO BID 09/01/17 levoFLOXacin [Levaquin] 500 mg PO DAILY #10 tab 10/03/17
--- NOTE | 2017-10-03 14:26 | RAD ---
EXAM DESCRIPTION: Chest,1 View CLINICAL HISTORY: SOB COMPARISON: September 01, 2017 FINDINGS: Tracheostomy tube remains in place without apparent complication. The cardiomediastinal silhouette is at the upper limits of normal size, stable. Again seen are bilateral interstitial and right basilar alveolar opacities, not significantly changed from the prior exam. Question tiny right-sided effusion. No definite left-sided effusion. There is no pneumothorax or acute fracture. IMPRESSION: Pulmonary edema, worse in the right lung base with a possible tiny right-sided effusion. Pneumonia is a less likely consideration. Overall, findings are not significantly changed from Aug, 2017. Electronically signed by: Tin Tinsley MD 10/03/2017 2:25 PM CDT
[2017-10-03 16:49] VITALS: BP 103/71; TEMP 98.3; O2SAT 100
== END 2017-10-03 16:52 ==
LOC: ER 13:37
DX: N30.00 Acute cystitis without hematuria (principal); R42 Dizziness and giddiness; R41.82 Altered mental status, unspecified; R32 Unspecified urinary incontinence; I50.9 Heart failure, unspecified; I11.0 Hypertensive heart disease with heart failure; J44.9 Chronic obstructive pulmonary disease, unspecified; E03.9 Hypothyroidism, unspecified; K21.9 Gastro-esophageal reflux disease without esophagitis; Z99.11 Dependence on respirator [ventilator] status; Z79.01 Long term (current) use of anticoagulants; Z79.899 Other long term (current) drug therapy

== ENCOUNTER 2017-10-18 11:32 | Emergency (ER) | payer OTHER ==
[2017-10-18 11:46] VITALS: TEMP 96.1
--- NOTE | 2017-10-18 12:23 | RAD ---
EXAM DESCRIPTION: Chest,1 View CLINICAL HISTORY: near syncope COMPARISON: October 03, 2017 FINDINGS: Endotracheal tube remains in place without apparent complication. The cardiomediastinal silhouette is at the upper limits of normal size, stable. There is worsening right more so than left perihilar interstitial opacities. Significant consolidation of the right mid and lower lung zones with associated [id number] pleural effusion. IMPRESSION: Worsening right more so than left pulmonary opacities and small to moderate right-sided pleural effusion. Stable endotracheal or tracheostomy tube. Electronically signed by: Puneet Acevedo MD 10/18/2017 12:21 PM CDT
--- NOTE | 2017-10-18 14:33 | CT ---
EXAM: CT Abdomen and Pelvis Without Intravenous Contrast CLINICAL HISTORY: The patient is 37 years old and is Male; increasing liver function tests and white blood cell count TECHNIQUE: Axial computed tomography images of the abdomen and pelvis without intravenous contrast. Coronal and sagittal reformatted images were created and reviewed. This exam was performed according to our departmental dose-optimization program, which includes automated exposure control, adjustment of the mA and/or kV according to patient size and/or use of iterative reconstruction technique. COMPARISON: Prior contrast enhanced CT from 09/01/2017, approximately 6 weeks earlier. FINDINGS: LUNG BASES: Chronic appearing consolidation at the RIGHT lung base is again noted, likely chronic. PLEURAL SPACE: Trace LEFT pleural effusion remains. HEART: Heart size is within normal limits. The heart and mediastinum are shifted to the RIGHT. ABDOMEN: LIVER: Unremarkable noncontrast appearance of the liver. GALLBLADDER AND BILE DUCTS: Unremarkable. No calcified stones. No ductal dilation. PANCREAS: Unremarkable. No ductal dilation. SPLEEN: Unremarkable. No splenomegaly. No splenic lesion noted. ADRENALS: Unremarkable. No mass. KIDNEYS AND URETERS: There is no nephrolithiasis identified bilaterally. There is no hydronephrosis noted bilaterally. STOMACH AND BOWEL: No evidence of bowel obstruction. There is fluid in the rectosigmoid colon. There is no abnormal distention. There is no evidence of diverticulitis on this noncontrast study. PELVIS: APPENDIX: The appendix is not identified with certainty, although no definite signs of appendicitis are seen in its expected location. BLADDER: Urinary bladder is unchanged with mild wall thickening and layering dependent small calculi again noted in the bladder. REPRODUCTIVE: Unremarkable as visualized. ABDOMEN and PELVIS: INTRAPERITONEAL SPACE: No free intraperitoneal air. No evidence of ascites. No acute inflammatory process is noted in the abdomen or pelvis on noncontrast CT. BONES/JOINTS: Severe body contracture from severe S-shaped scoliosis is again noted. No acute fracture. No dislocation. SOFT TISSUES: There are subcutaneous areas of induration without susan ulceration involving the skin overlying the RIGHT initial tuberosity. This area should be monitored for potential future sacral decubitus ulcer development. Remaining areas of induration in the soft tissues of the RIGHT sided flank have improved including soft tissue gas noted previously. VASCULATURE: No abdominal aortic aneurysm. LYMPH NODES: A few small stable mesenteric lymph nodes at the root of the mesentery are again noted. TUBES, LINES AND DEVICES: A percutaneous gastrostomy tube is again noted in place. IMPRESSION: There are subcutaneous areas of induration without susan ulceration involving the skin overlying the RIGHT initial tuberosity. This area should be monitored for potential future sacral decubitus ulcer development. Previous area of soft tissue gas in the RIGHT flank subcutaneous tissues has resolved with resolution of induration in this area. No hydronephrosis or urinary tract obstruction on noncontrast CT. Persistent chronic findings as noted above. Electronically signed by: Jaylen Beck MD 10/18/2017 2:32 PM CDT
--- NOTE | 2017-10-18 16:31 | ED.PDOC ---
History of Present Illness - General Chief Complaint: Neuro Symptoms/Deficits Stated Complaint: dizzy Time Seen by Provider: 10/18/17 11:35 Source: EMS notes reviewed, retirement records Exam Limitations: clinical condition - History of Present Illness Initial Comments: the patient presents to the er due to an episode of possbile near syncope. he was sitting up at the nm when he semmed to get a litttle weak and pale and was laid back and got better. he was diagnosed with a mild pna 2 days ago and started on levaquin as appropriate. he arrived here in no distress. no evidence of any recurrence here. he is pleasant and cooperative. communication is limiited somewhat. 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 he does have chf from his MD. lungs are clear except for some mild rales at the bases which seem to be chronic for him. he has a less than dime size denuded area to his rigth flank body fold, likely corresponding to the area of inflammation seen on the ct scan. i do not see other sores on him. no obvious evidecne of pain to palpation elsewhere. Timing/Duration: momentarily Severity: mild Improving Factors: nothing Worsening Factors: nothing Associated Symptoms: malaise Allergies/Adverse Reactions: Allergies NO KNOWN ALLERGY Allergy (Verified 10/18/17 11:46) Home Medications: Ambulatory Orders Acetaminophen [Acetaminophen ER] 650 mg PEG Q6H PRN 08/14/15 Arformoterol Tartrate [Brovana] 15 mcg IN BID 08/14/15 Budesonide (Inhalation) [Budesonide] 0.5 mg IN BID 08/14/15 Chlorhexidine Gluconate (Mouth [Chlorhexidine Gluconate] 0.12 % MT Q4H PRN 08/13 Ferrous Sulfate 325 mg PO BID 08/14/15 Furosemide [Lasix] 40 mg PEG BID 08/14/15 Ipratropium/Albuterol [Duoneb] 3 ml NEB Q6H 08/14/15 Levothyroxine Sodium [Synthroid] 25 mcg PEG ACBK 08/14/15 Potassium Chloride [K-Tab] 20 meq PEG BID 08/14/15 Clotrimazole/Betamethasone Cre [Lotrisone Cream] 1 unit TOP TID PRN 01/17/17 Dextran 70-Hypromellose [Natural Balance Tears 70.01-0.3 %] 1 tata OP TID Polyethylene Glycol 3350 [Miralax] 17 gm PEG DAILY PRN 01/17/17 B-Complex W/ Folic Acid [B Complex] 1 tab PEG DAILY 08/05/17 Folic Acid 1 mg PEG DAILY 08/05/17 Lactobacillus [Acidophilus] 2 tab PEG TID 08/05/17 Levalbuterol HCl [Xopenex] 1.25 mg IN Q6H 08/05/17 Nystatin Powder [Mycostatin] 15 gm TOP BID 08/05/17 Buspirone HCl 10 mg PO TID 09/01/17 Enoxaparin Sodium [Lovenox] 40 mg SC BID 5 Days syg 09/01/17 Metoclopramide HCl 5 mg PO QID 09/01/17 Ranitidine HCl 150 mg PO BID 09/01/17 Scopolamine Patch 1.5MG [Transderm-Scop Patch] 1 ea TD Q72H 09/01/17 Simethicone 160 mg PO BID 09/01/17 Warfarin Sodium [Coumadin] 3 mg PO DAILY 30 Days tab 09/01/17 guaiFENesin 100 MG/5 ML [Robitussin] 20 ml PO BID 09/01/17 levoFLOXacin [Levaquin] 500 mg PO DAILY #10 tab 10/03/17 Review of Systems - Review of Systems Review of Systems: 10/18/17 16:32 pt able to communicate effectivly with yes/no questions Constitutional: States: malaise - momentary EENTM: States: no symptoms reported Respiratory: States: no symptoms reported Cardiology: States: see HPI Gastrointestinal/Abdominal: States: no symptoms reported Genitourinary: States: no symptoms reported Musculoskeletal: States: no symptoms reported Skin: States: no symptoms reported Neurological: States: see HPI Endocrine: States: no symptoms reported All other Systems: No Change from Baseline Past Medical History (General) - Patient Medical History Hx Seizures: No Hx Stroke: No Hx Dementia: No Hx Asthma: No Hx of COPD: Yes - on mech vent Hx Cardiac Disorders: No Hx Congestive Heart Failure: Yes Hx Pacemaker: No Hx Hypertension: Yes Hx Thyroid Disease: Yes - hypo Hx Diabetes: No Hx Gastroesophageal Reflux: Yes - constipation Hx Renal Disease: No Hx of HIV: No Hx MRSA: Yes - 2017 Hip Wound MRSA Source:: Wound - Vaccination History Hx Tetanus, Diphtheria Vaccination: No Hx Influenza Vaccination: No Hx Pneumococcal Vaccination: No - Social History Hx Tobacco Use: No Hx Chewing Tobacco Use: No Hx Alcohol Use: No Hx Substance Use: No Hx Substance Use Treatment: No Hx Depression: No Hx Physical Abuse: No Hx Emotional Abuse: No Hx Suspected Abuse: No - Activities of Daily Living Fdc/Assisted Living (if applicable):: [facility] - Female History Patient : No Family Medical History - Family History Mother Family History: Unknown Living Status: Still Living Physical Exam - Physical Exam General Appearance: Alert Eye Exam: bilateral normal Ears, Nose, Throat: hearing grossly normal, normal pharynx Neck: other - tracheostomy in place. Respiratory: chest non-tender, no respiratory distress, no accessory muscle use , rales - chronic bibasilar Cardiovascular/Chest: normal peripheral pulses, regular rate, rhythm, no edema Peripheral Pulses: radial,right: 2+, radial,left: 2+, dorsalis pedis,right: 2+, dorsalis pedis,left: 2+ Gastrointestinal/Abdominal: non tender - chronic changes only, soft Rectal Exam: other - no evidence of any sacral breakdown at this time. Back Exam: other - significant chronic scoliosis. Extremity: no pedal edema, no calf tenderness, normal capillary refill, other - significant chronic contractures. Neurologic: alert, normal mood/affect, oriented x 3 Skin Exam: normal color - see hpi Comments: Vital Signs - 24 hr 10/18/17 10/18/17 10/18/17 11:34 11:36 13:32 Temperature 96.1 F L Pulse Rate [ 95 H pulse ox] Respiratory 20 Rate Respiratory 20 20 Rate [Volume Control Data] Blood Pressure 105/71 [Left Arm] O2 Sat by Pulse 100 Oximetry Progress - Progress Progress: 10/18/17 16:40 pt here with near syncopal episode of uncertain cause. a possible source is mild transient hypoglycemia given his very low body fat. any further episodes should prompt a glucose check, blood pressure and heart rate check. also the pt does have mild worsening chf which goes along with his chronic condition. He should expect more orthostatic episodes as the disease progresses. I do not recommend changing any of his cardiac meds at this time as i think he is balanced as well as possible for now. that may change in the future. I do think he should have a repeat cbc, cmp and ua within the next week for follow up , given his propensity for becoming anemic and developing uti's. For now he has already been started on the levaquin for his lungs and i believe he should continue with that though it should be given with feedings to help prevent stomach upset. He had a very mild elevation of his liver enzymes most likely relate to his chf, as his abdominal ct showed no acute changes. the cmp can be used to help follow that as well. His wbc appears to be close to baseline which is also reassuring here today. follow up with pcp later this week. er warnings are given. - Results/Orders Results/Orders: 10/18/17 11:36 Telemetry .CONTINUOUS Vital Signs-Tilt PRN UA [URINALYSIS] Stat 10/18/17 11:45 EKG STAT nsr 89 bpm, la dil, incomplete rbbb. normal qtc, no obvious acute st changes cw ischemia. cxr shows chronic changes with persistent effusion, with mild penitentiary worsening on the right. ct abd pelvis shows chronic effusion on the irght. no obvious new acute intraabdominal pathology. Laboratory Results - last 24 hr 10/18/17 10/18/17 10/18/17 11:36 11:55 11:55 WBC 10.1 RBC 3.60 L Hgb 10.0 L Hct 30.6 L MCV 84.8 MCH 27.7 MCHC 32.6 L RDW 16.6 H Plt Count 423 H MPV 8.3 Absolute Neuts (auto) 8.00 H Absolute Lymphs (auto) 0.80 L Absolute Monos (auto) 0.60 Absolute Eos (auto) 0.60 H Absolute Basos (auto) 0.00 Neutrophils % 79.6 H Lymphocytes % 7.5 L Monocytes % 6.4 Eosinophils % 6.1 H Basophils % 0.4 PT INR PTT (SP) Sodium 137 Potassium 3.8 Chloride 106 Carbon Dioxide 22 Anion Gap 12.8 BUN 22 H Creatinine < 0.40 L BUN/Creatinine Ratio 55.0 H POC Glucose 118 H Random Glucose 100 Serum Osmolality 277.2 Lactic Acid Calcium 9.1 Magnesium 2.2 Total Bilirubin 0.5 AST 65 H ALT 91 H Alkaline Phosphatase 140 H Creatine Kinase 62 CK-MB (CK-2) 2.8 CK-MB (CK-2) % Not Reportable Troponin I 0.03 B-Natriuretic Peptide 203.0 H* Serum Total Protein 9.7 H Albumin 3.4 Globulin 6.3 H Albumin/Globulin Ratio 0.5 L 10/18/17 10/18/17 10/18/17 11:55 11:55 15:24 WBC RBC Hgb 10.8 L Hct 32.4 L MCV MCH MCHC RDW Plt Count MPV Absolute Neuts (auto) Absolute Lymphs (auto) Absolute Monos (auto) Absolute Eos (auto) Absolute Basos (auto) Neutrophils % Lymphocytes % Monocytes % Eosinophils % Basophils % PT 18.9 H INR 1.640 PTT (SP) 35.9 Sodium Potassium Chloride Carbon Dioxide Anion Gap BUN Creatinine BUN/Creatinine Ratio POC Glucose Random Glucose Serum Osmolality Lactic Acid 1.5 Calcium Magnesium Total Bilirubin AST ALT Alkaline Phosphatase Creatine Kinase CK-MB (CK-2) CK-MB (CK-2) % Troponin I B-Natriuretic Peptide Serum Total Protein Albumin Globulin Albumin/Globulin Ratio Departure - Departure Clinical Impression: Near syncope Disposition: Discharge to SNF Condition: Fair Departure Forms: ED Discharge - Pt. Copy, Patient Portal Self Enrollment Diet: other Activity: increase activity as tolerated Referrals: JOSE NOGUEIRA [Primary Care Provider] - 1-5 Days Home Medications: Ambulatory Orders Acetaminophen [Acetaminophen ER] 650 mg PEG Q6H PRN 08/14/15 Arformoterol Tartrate [Brovana] 15 mcg IN BID 08/14/15 Budesonide (Inhalation) [Budesonide] 0.5 mg IN BID 08/14/15 Chlorhexidine Gluconate (Mouth [Chlorhexidine Gluconate] 0.12 % MT Q4H PRN 08/13 Ferrous Sulfate 325 mg PO BID 08/14/15 Furosemide [Lasix] 40 mg PEG BID 08/14/15 Ipratropium/Albuterol [Duoneb] 3 ml NEB Q6H 08/14/15 Levothyroxine Sodium [Synthroid] 25 mcg PEG ACBK 08/14/15 Potassium Chloride [K-Tab] 20 meq PEG BID 08/14/15 Clotrimazole/Betamethasone Cre [Lotrisone Cream] 1 unit TOP TID PRN 01/17/17 Dextran 70-Hypromellose [Natural Balance Tears 70.01-0.3 %] 1 tata OP TID Polyethylene Glycol 3350 [Miralax] 17 gm PEG DAILY PRN 01/17/17 B-Complex W/ Folic Acid [B Complex] 1 tab PEG DAILY 08/05/17 Folic Acid 1 mg PEG DAILY 08/05/17 Lactobacillus [Acidophilus] 2 tab PEG TID 08/05/17 Levalbuterol HCl [Xopenex] 1.25 mg IN Q6H 08/05/17 Nystatin Powder [Mycostatin] 15 gm TOP BID 08/05/17 Buspirone HCl 10 mg PO TID 09/01/17 Enoxaparin Sodium [Lovenox] 40 mg SC BID 5 Days syg 09/01/17 Metoclopramide HCl 5 mg PO QID 09/01/17 Ranitidine HCl 150 mg PO BID 09/01/17 Scopolamine Patch 1.5MG [Transderm-Scop Patch] 1 ea TD Q72H 09/01/17 Simethicone 160 mg PO BID 09/01/17 Warfarin Sodium [Coumadin] 3 mg PO DAILY 30 Days tab 09/01/17 guaiFENesin 100 MG/5 ML [Robitussin] 20 ml PO BID 09/01/17 levoFLOXacin [Levaquin] 500 mg PO DAILY #10 tab 10/03/17 Additional Instructions: pt here with near syncopal episode of uncertain cause. a possible source is mild transient hypoglycemia given his very low body fat. any further episodes should prompt a glucose check, blood pressure and heart rate check. also the pt does have mild worsening chf which goes along with his chronic condition. He should expect more orthostatic episodes as the disease progresses. I do not recommend changing any of his cardiac meds at this time as i think he is balanced as well as possible for now. that may change in the future. I do think he should have a repeat cbc, cmp and ua within the next week for follow up , given his propensity for becoming anemic and developing uti's. For now he has already been started on the levaquin for his lungs and i believe he should continue with that though it should be given with feedings to help prevent stomach upset. He had a very mild elevation of his liver enzymes most likely relate to his chf, as his abdominal ct showed no acute changes. the cmp can be used to help follow that as well. His wbc appears to be close to baseline which is also reassuring here today. follow up with pcp later this week. er warnings are given.
[2017-10-18 17:11] VITALS: BP 99/52; O2SAT 98
== END 2017-10-18 17:15 ==
LOC: ER 11:32
DX: R55 Syncope and collapse (principal); J44.9 Chronic obstructive pulmonary disease, unspecified; I11.0 Hypertensive heart disease with heart failure; I50.9 Heart failure, unspecified; E03.9 Hypothyroidism, unspecified; K21.9 Gastro-esophageal reflux disease without esophagitis; Z99.11 Dependence on respirator [ventilator] status; Z79.01 Long term (current) use of anticoagulants; Z79.899 Other long term (current) drug therapy

== ENCOUNTER 2017-10-19 16:08 | Emergency (ER) | payer OTHER ==
--- NOTE | 2017-10-19 16:26 | ED.PDOC ---
History of Present Illness - General Chief Complaint: Respiratory Problem Stated Complaint: shortness of breath Time Seen by Provider: 10/19/17 16:19 Source: patient, EMS, skilled nursing records Exam Limitations: clinical condition - History of Present Illness Initial Comments: patient is brought to the emergency room via EMS for increased work of breathing. Patient is a skilled nursing resident who is ventilator dependent secondary to muscular dystrophy. 3 days ago patient began having cough with purulent sputum and was diagnosed with pneumonia. He was started on Levaquin and sent back to the skilled nursing. Yesterday the they had him come to the emergency department for altered LOC. Patient was found to have a slight elevation of liver function tests and his Levaquin dose was decreased but he was sent back to the skilled nursing. Per EMS skilled nursing noted that he was hypoxic with altered LOC today and was asked to return to the emergency room. Patient is alert and talking to us and states that he is perhaps a little bit better than yesterday. However, his sputum has seemed to increase and he is continuing to have shortness of breath. He denies fever, chills, or nausea. Respiratory is on hand and he is currently running 91% O2 sat on his home ventilator settings. Timing/Duration: other - 3 day Severity: moderate Activities at Onset: rest Possible Cause: frequent episodes Improving Factors: nothing Worsening Factors: nothing Associated Symptoms: cough Allergies/Adverse Reactions: Allergies NO KNOWN ALLERGY Allergy (Verified 10/18/17 11:46) Home Medications: Ambulatory Orders Acetaminophen [Acetaminophen ER] 650 mg PEG Q6H PRN 08/14/15 Arformoterol Tartrate [Brovana] 15 mcg IN BID 08/14/15 Budesonide (Inhalation) [Budesonide] 0.5 mg IN BID 08/14/15 Chlorhexidine Gluconate (Mouth [Chlorhexidine Gluconate] 0.12 % MT Q4H PRN 08/13 Ferrous Sulfate 325 mg PO BID 08/14/15 Furosemide [Lasix] 40 mg PEG BID 08/14/15 Ipratropium/Albuterol [Duoneb] 3 ml NEB Q6H 08/14/15 Levothyroxine Sodium [Synthroid] 25 mcg PEG ACBK 08/14/15 Potassium Chloride [K-Tab] 20 meq PEG BID 08/14/15 Clotrimazole/Betamethasone Cre [Lotrisone Cream] 1 unit TOP TID PRN 01/17/17 Dextran 70-Hypromellose [Natural Balance Tears 70.01-0.3 %] 1 tata OP TID Polyethylene Glycol 3350 [Miralax] 17 gm PEG DAILY PRN 01/17/17 B-Complex W/ Folic Acid [B Complex] 1 tab PEG DAILY 08/05/17 Folic Acid 1 mg PEG DAILY 08/05/17 Lactobacillus [Acidophilus] 2 tab PEG TID 08/05/17 Levalbuterol HCl [Xopenex] 1.25 mg IN Q6H 08/05/17 Nystatin Powder [Mycostatin] 15 gm TOP BID 08/05/17 Buspirone HCl 10 mg PO TID 09/01/17 Enoxaparin Sodium [Lovenox] 40 mg SC BID 5 Days syg 09/01/17 Metoclopramide HCl 5 mg PO QID 09/01/17 Ranitidine HCl 150 mg PO BID 09/01/17 Scopolamine Patch 1.5MG [Transderm-Scop Patch] 1 ea TD Q72H 09/01/17 Simethicone 160 mg PO BID 09/01/17 Warfarin Sodium [Coumadin] 3 mg PO DAILY 30 Days tab 09/01/17 guaiFENesin 100 MG/5 ML [Robitussin] 20 ml PO BID 09/01/17 levoFLOXacin [Levaquin] 500 mg PO DAILY #10 tab 10/03/17 Review of Systems - Review of Systems Constitutional: Denies: chills, diaphoresis, fever EENTM: States: no symptoms reported. Denies: eye pain, ear pain, throat pain Respiratory: States: short of breath Cardiology: States: no symptoms reported. Denies: chest pain, edema, palpitations Gastrointestinal/Abdominal: States: abdominal pain. Denies: constipation, diarrhea, nausea, vomiting Genitourinary: States: no symptoms reported Musculoskeletal: States: no symptoms reported Skin: States: no symptoms reported Past Medical History (General) - Patient Medical History Hx Seizures: No Hx Stroke: No Hx Dementia: No Hx Asthma: No Hx of COPD: Yes - on mech vent Hx Cardiac Disorders: No Hx Congestive Heart Failure: Yes Hx Pacemaker: No Hx Hypertension: Yes Hx Thyroid Disease: Yes - hypo Hx Diabetes: No Hx Gastroesophageal Reflux: Yes - constipation Hx Renal Disease: No Hx of HIV: No Hx MRSA: Yes - 2017 Hip Wound Hx Other PMH: Yes - Muscular dystrophy MRSA Source:: Wound - Vaccination History Hx Tetanus, Diphtheria Vaccination: No Hx Influenza Vaccination: No Hx Pneumococcal Vaccination: No - Social History Hx Tobacco Use: No Hx Chewing Tobacco Use: No Hx Alcohol Use: No Hx Substance Use: No Hx Substance Use Treatment: No Hx Depression: No Hx Physical Abuse: No Hx Emotional Abuse: No Hx Suspected Abuse: No - Female History Patient : No Family Medical History - Family History Mother Family History: Unknown Living Status: Still Living Physical Exam - Physical Exam General Appearance: Frail, Ill Appearing Eyes, Ears, Nose, Throat Exam: PERRL/EOMI, pharynx normal Neck: other - Tracheostomy tube in place with no purulent discharge Respiratory: other - coarse BS throughout with no wheezes Cardiovascular/Chest: regular rate, rhythm, no edema, no gallop, no JVD, no murmur Gastrointestinal/Abdominal: normal bowel sounds, non tender, soft, no organomegaly Neurologic: alert, oriented x 3 Skin Exam: normal color Progress - Progress Progress: 10/19/17 17:52 10/19/17 17:15 Mechanical Ventilation DAILY 10/19/17 17:16 Capnography .ONCE Oxygen Delivery Assessment: QSHIFT 10/20/17 09:00 Oxygen Daily Laboratory Results WBC 31.6 K/mm3 (4.8-10.8) H* D 10/19/17 16:34 RBC 4.09 M/mm3 (4.70-6.10) L 10/19/17 16:34 Hgb 11.5 gm/dL (14.0-18.0) L 10/19/17 16:34 Hct 35.2 % (42.0-52.0) L 10/19/17 16:34 MCV 85.9 fl (80.0-94.0) 10/19/17 16:34 MCH 28.1 pg (27.0-31.0) 10/19/17 16:34 MCHC 32.6 g/dL (33.0-37.0) L 10/19/17 16:34 RDW 16.5 % (11.5-14.5) H 10/19/17 16:34 Plt Count 561 K/mm3 (130-400) H D 10/19/17 16:34 MPV 9.0 fl (7.40-10.4) 10/19/17 16:34 Absolute Neuts (auto) 25.30 K/uL (1.8-6.8) H 10/19/17 16:34 Absolute Lymphs (auto) 1.50 K/uL (1.0-3.4) 10/19/17 16:34 Absolute Monos (auto) 1.20 K/uL (0.2-0.8) H 10/19/17 16:34 Absolute Eos (auto) 3.40 K/uL (0.0-0.4) H 10/19/17 16:34 Absolute Basos (auto) 0.20 K/uL (0.0-0.1) H 10/19/17 16:34 Neutrophils % 80.2 % (42.0-78.0) H 10/19/17 16:34 Neutrophils % (Manual) 79.0 % (42.0-78.0) H 10/19/17 16:34 Lymphocytes % 4.7 % (20.0-50.0) L 10/19/17 16:34 Lymphocytes % (Manual) 5.0 % 10/19/17 16:34 Monocytes % 3.7 % (2.0-9.0) 10/19/17 16:34 Monocytes % (Manual) 0.0 % 10/19/17 16:34 Eosinophils % 10.8 % (1.0-5.0) H 10/19/17 16:34 Basophils % 0.6 % (0.0-2.0) 10/19/17 16:34 Band Neutrophils 11.0 % (0-2) H* 10/19/17 16:34 Eosinophils 5.0 % 10/19/17 16:34 pCO2 63 mmHg (35-48) H 10/19/17 16:50 pO2 161 mmHg (83-108) H* 10/19/17 16:50 HCO3 19.3 mmol/L 10/19/17 16:50 ABG pH 7.110 (7.35-7.45) L* 10/19/17 16:50 ABG O2 Saturation 99.1 % (95.0-99.0) H 10/19/17 16:50 ABG Base Excess -10.4 mmol/L 10/19/17 16:50 ABG Deoxyhemoglobin 0.9 % (0.0-5.0) 10/19/17 16:50 Oxyhemoglobin % 97.1 % (94.0-98.0) 10/19/17 16:50 Carboxyhemoglobin % 0.2 % (0.5-1.5) L 10/19/17 16:50 Methemoglobin % Sat 1.8 % (0.0-1.5) H 10/19/17 16:50 Calc Total Hemoglobin 11.5 g/dL (13.5-17.5) L 10/19/17 16:50 Sodium 133 mmol/L (135-145) L 10/19/17 16:34 Potassium 3.8 mmol/L (3.6-5.0) 10/19/17 16:34 Chloride 104 mmol/L (101-111) 10/19/17 16:34 Carbon Dioxide 21 mmol/L (21-31) 10/19/17 16:34 Anion Gap 11.8 (12-18) L 10/19/17 16:34 BUN 23 mg/dL (7-18) H 10/19/17 16:34 Creatinine < 0.40 mg/dL (0.6-1.3) L 10/19/17 16:34 BUN/Creatinine Ratio 57.0 (10-20) H 10/19/17 16:34 POC Glucose 223 mg/dL (70-105) H D 10/19/17 16:56 Random Glucose 270 mg/dL (70-105) H D 10/19/17 16:34 Serum Osmolality 279.6 mOsm/L (275-295) 10/19/17 16:34 Lactic Acid 1.0 mmol/L (0.5-2.2) 10/19/17 16:34 Calcium 8.8 mg/dL (8.4-10.2) 10/19/17 16:34 Total Bilirubin 0.5 mg/dL (0.2-1.0) 10/19/17 16:34 AST 44 IU/L (10-42) H D 10/19/17 16:34 ALT 76 IU/L (10-60) H 10/19/17 16:34 Alkaline Phosphatase 146 IU/L (42-121) H 07/05/18 16:34 Serum Total Protein 9.9 gm/dL (6.4-8.2) H 10/19/17 16:34 Albumin 3.5 g/dl (3.2-5.5) 10/19/17 16:34 Globulin 6.4 gm/dL (2.3-3.5) H 10/19/17 16:34 Albumin/Globulin Ratio 0.5 (1.1-1.9) L 10/19/17 16:34 Patient Name: KULWANT MYERS Gender: Male Date of : 1980 Referring Physician: OMER ESCOBAR Organization: [facility] Accession Number: [id number] Requested Date: October 19, 2017 16:19 Report Status: Final Requested Procedure: 1 Procedure Description: Chest,1 View Modality: CR Findings Reporting MD: Giovanny Hall Fellow MD: Not available Dictation Time: Field Underwriter: Not available Marine Equipment Engineer Date: EXAM DESCRIPTION: Chest,1 View CLINICAL HISTORY: pneumonia worsening COMPARISON: October 18, 2017 Findings: Single upright portable frontal view the chest. Tracheostomy tube projects over the trachea at midline with distal tip projecting approximately 5.2 cm above the miguel. Cardiac silhouette shows borderline cardiomegaly with increase interstitial markings bilaterally. Perihilar interstitial markings are more prominent on the left on this exam compared to October 18, 2017. Redemonstration of prominent left perihilar interstitial opacities. Consolidation in the right mid and lower lung zones shows some improvement compared to October 18, 2017. Redemonstration of small to moderate right-sided pleural effusion, mildly improved compared to previous. No pneumothorax. IMPRESSION: 1. Cardiomegaly with increased perihilar interstitial markings, left side more prominent on this examination compared to October 18, 2017. Findings compatible with worsening interstitial edema. 2. Consolidation in the right mid and lower lung zones show some improvement compared to October 18, 2017. This may represent improving pneumonia and/or pulmonary edema. 3. Small to moderate right-sided pleural effusion, mildly improved compared to previous. After patient was initially evaluated, I was called emergently to the room as patient became diaphoretic and non-responsive. He was breathing on his own and BP was >100 systolic and BS 220 but non responsive including to stimuli. IV was attempted but unable to be obtained and IO was ordered. Meropenem had previously been ordered and was started. NS IV bolus was started. Chest Xray showed trach was in place and bilateral pneumonia was seen. Labs showed as above sepsis. Patient's parents were called and they did want all treatment including transfer for ICU but if his heart stopped they do not want compressions or cardioversion. This was verified by RN as well. We have called and gotten transfer secured to [place]. Departure - Departure Clinical Impression: Sepsis Qualifiers: Sepsis type: sepsis due to unspecified organism Qualified Code(s): A41.9 - Sepsis, unspecified organism Respiratory failure Qualifiers: Chronicity: acute Respiratory failure complication: hypercapnia Qualified Code( s): J96.02 - Acute respiratory failure with hypercapnia Disposition: Transfer to Hospital Condition: Serious Departure Forms: ED Discharge - Pt. Copy, Patient Portal Self Enrollment Referrals: JOSE NOGUEIRA [Primary Care Provider] - 1-2 Weeks Home Medications: Ambulatory Orders Acetaminophen [Acetaminophen ER] 650 mg PEG Q6H PRN 08/14/15 Arformoterol Tartrate [Brovana] 15 mcg IN BID 08/14/15 Budesonide (Inhalation) [Budesonide] 0.5 mg IN BID 08/14/15 Chlorhexidine Gluconate (Mouth [Chlorhexidine Gluconate] 0.12 % MT Q4H PRN 08/13 Ferrous Sulfate 325 mg PO BID 08/14/15 Furosemide [Lasix] 40 mg PEG BID 08/14/15 Ipratropium/Albuterol [Duoneb] 3 ml NEB Q6H 08/14/15 Levothyroxine Sodium [Synthroid] 25 mcg PEG ACBK 08/14/15 Potassium Chloride [K-Tab] 20 meq PEG BID 08/14/15 Clotrimazole/Betamethasone Cre [Lotrisone Cream] 1 unit TOP TID PRN 01/17/17 Dextran 70-Hypromellose [Natural Balance Tears 70.01-0.3 %] 1 tata OP TID Polyethylene Glycol 3350 [Miralax] 17 gm PEG DAILY PRN 01/17/17 B-Complex W/ Folic Acid [B Complex] 1 tab PEG DAILY 08/05/17 Folic Acid 1 mg PEG DAILY 08/05/17 Lactobacillus [Acidophilus] 2 tab PEG TID 08/05/17 Levalbuterol HCl [Xopenex] 1.25 mg IN Q6H 08/05/17 Nystatin Powder [Mycostatin] 15 gm TOP BID 08/05/17 Buspirone HCl 10 mg PO TID 09/01/17 Enoxaparin Sodium [Lovenox] 40 mg SC BID 5 Days syg 09/01/17 Metoclopramide HCl 5 mg PO QID 09/01/17 Ranitidine HCl 150 mg PO BID 09/01/17 Scopolamine Patch 1.5MG [Transderm-Scop Patch] 1 ea TD Q72H 09/01/17 Simethicone 160 mg PO BID 09/01/17 Warfarin Sodium [Coumadin] 3 mg PO DAILY 30 Days tab 09/01/17 guaiFENesin 100 MG/5 ML [Robitussin] 20 ml PO BID 09/01/17 levoFLOXacin [Levaquin] 500 mg PO DAILY #10 tab 10/03/17 Critical Care Note - Critical Care Note Total Time (mins): 45 Comments: Patient did require at bedside total care of 45 min by MD including but not limited to consultation with transfer facility, parents of patient, and immediate attention for respiratory failure and sepsis. Transfer to Outside Facility - Transfer Information Accepting Provider:: Brittany Accepting Facility: [facility] Reason for Transfer: ICU
[2017-10-19] MEDS ORDERED: MEROPENEM 500 MG in SODIUM CHL 0.9% 50ML MIN-BAG+ 50 ML IVPB ONE (17:03)
[2017-10-19] MEDS ORDERED: MEROPENEM 500 MG VIAL IVPB ONE (17:15)
[2017-10-19] MEDS ORDERED: SODIUM CHL 0.9% 50ML MIN-BAG+ 50 ML IVPB ONE (17:15)
[2017-10-19] MEDS ORDERED: SODIUM CHLORIDE 0.9% 1000ML 1,000 ML ONE (17:21)
[2017-10-19] MEDS ORDERED: LIDOCAINE 1% 2 ML VIAL INJ ONE (17:22)
--- NOTE | 2017-10-19 17:26 | RAD ---
EXAM DESCRIPTION: Chest,1 View CLINICAL HISTORY: pneumonia worsening COMPARISON: October 18, 2017 Findings: Single upright portable frontal view the chest. Tracheostomy tube projects over the trachea at midline with distal tip projecting approximately 5.2 cm above the miguel. Cardiac silhouette shows borderline cardiomegaly with increase interstitial markings bilaterally. Perihilar interstitial markings are more prominent on the left on this exam compared to October 18, 2017. Redemonstration of prominent left perihilar interstitial opacities. Consolidation in the right mid and lower lung zones shows some improvement compared to October 18, 2017. Redemonstration of small to moderate right-sided pleural effusion, mildly improved compared to previous. No pneumothorax. IMPRESSION: 1. Cardiomegaly with increased perihilar interstitial markings, left side more prominent on this examination compared to October 18, 2017. Findings compatible with worsening interstitial edema. 2. Consolidation in the right mid and lower lung zones show some improvement compared to October 18, 2017. This may represent improving pneumonia and/or pulmonary edema. 3. Small to moderate right-sided pleural effusion, mildly improved compared to previous. Electronically signed by: Giovanny Hall MD 10/19/2017 5:24 PM CDT
[2017-10-19 18:41] VITALS: BP 140/89; TEMP 96.5; O2SAT 91
== END 2017-10-19 18:41 | disposition short-term general hospital (02) ==
LOC: ER 16:08
DX: A41.9 Sepsis, unspecified organism (principal); J96.02 Acute respiratory failure with hypercapnia; J44.9 Chronic obstructive pulmonary disease, unspecified; I11.0 Hypertensive heart disease with heart failure; I50.9 Heart failure, unspecified; E03.9 Hypothyroidism, unspecified; Z99.11 Dependence on respirator [ventilator] status; G71.0 Muscular dystrophy; Z79.01 Long term (current) use of anticoagulants; Z79.899 Other long term (current) drug therapy
CPT/HCPCS: 36415; 36416; 36600; 71045; 80053; 82803; 82805; 82948; 83605; 85025; 94002; 94770; J2185; J7050